=== PATIENT | female | born 2000 | race African-American/Black ===

== ENCOUNTER 2021-09-22 03:00 | Inpatient (IN) ==
[2021-09-22] MEDS ORDERED: PROVENTIL NEB TX 0.083% 2.5MG/ 3ML NEB ONE (03:10)
[2021-09-22] MEDS ORDERED: PROVENTIL NEB TX 0.083% 2.5MG/ 3ML ONE (03:12)
[2021-09-22 03:18] VITALS: BMI 23.0
[2021-09-22] MEDS ORDERED: SOLU-Medrol 125 MG VIAL IM ONE (03:30)
--- NOTE | 2021-09-22 03:30 | DR.SOBA ---
HPI Time Seen Time Seen by Provider: 09/22/21 03:15 Primary Care Physician Primary Care Physician: JOSE HAWKINS Complaints Chief Complaint Doctors Comments: ASTHHMA ATTACK . STARTING 6 HOURS AGO. DID NOT GET HER ASTHMA MEDS FROM THE PHARMACY. Chief Complaint:: PT STATES SHE IS HAVING AN ASTHMA ATTACK. STATES SHE WAS RECENTLY DIAGNOSED 3 WEEKS AGO AND HAS BEEN UNABLE TO GET HER INHALER. COVID-19 Coronavirus risk:travel/contact w/high risk person: No Has patient experienced Coronavirus symptoms: No Source History Provided: Patient Mode of Arrival Mode of Arrival: Ambulatory Timing Onset of Chief Complaint: 09/22/21 PMH PMH Past Medical History: Yes Past Medical History: Asthma Past Surgical History: No Surgical History: No History Family History History of Family Medical Conditions: Yes Family Medical History: Hypertension Social History Does patient currently use any type of tobacco product: No Have you used tobacco products in the last 12 months: No Alcohol Use: None Do you use any recreational Drugs:: No Lives With: Family Lives Where: Home Travel Risk Coronavirus risk:travel/contact w/high risk person: No Has patient experienced Coronavirus symptoms: No Infectious screening Have you traveled outside the country in the last 6 months?: No Isolation: Standard ROS Review of Systems Constitutional: No Symptoms Reported Eyes: No Symptoms Reported ENTM: No Symptoms Reported Respiratoy: Short of Breath and Wheezing Cardiovascular: No Symptoms Reported Gastrointestinal/Abdominal: No Symptoms Reported Genitourinary: No Symptoms Reported Neurological: No Symptoms Reported Musculoskeletal: No Symptoms Reported Integumentary: No Symptoms Reported Hematologic/Lymphatic: No Symptoms Reported Endocrine: No Symptoms Reported Psychiatric: No Symptoms Reported All Other Systems: Reviewed and Negative PE Vital Signs Vitals: Temperature 97.0 F Pulse Rate 101 Respiratory Rate 16 Blood Pressure [Left Arm] 107/59 Blood Pressure 116/56 O2 Sat by Pulse Oximetry 88 General Limitations: No Limitations General Appearance: Alert and In Distress (MODERATE DISTRESS) Head Head Exam: Normal Inspection Eyes Eye exam: Normal Appearance ENT ENT Exam: Normal Exam Neck Neck Exam: Normal Inspection Chest Chest Inspection: Normal Inspection Respiratory Respiratory Exam: Respiratory Distress (MODERATE DISTRESS) Respiratory Exam: Bilateral: Wheezing (MILD INSPIRATORY/EXPIRATORY WHEEZING) Cardiovascular Cardiovascular Exam: Normal Rhythm and Tachycardia Abdominal Exam Abdominal Exam: Normal Inspection, Normal Bowel Sounds and Soft Extremities Extremities Exam: Normal Inspection Back Back Exam: Normal Inspection Neurologic Neurological Exam: Alert and Oriented X3 Psychiatric Psychiatric Exam: Normal Affect and Normal Mood Skin Skin Exam: Warm, Dry, Intact and Normal Color MDM Differential Diagnosis Differential Diagnosis: Asthma Differential Diagnosis Comment:: ASTHMA EXACERBATION COURSE Treatment Treatment: PATIENT WAS INITIALLY GIVEN A ALBUTEROL NEB BUT O2 SAT REMAINED IN LOW 90'S. WAS GIVEN ANOTHER DUONEB AND SOLUMEDROL 125MG IM WITH O2 SAT INCREASING TO 95 % BUT DROPPING BACK TO LOW 90'S. PATIENT HAD CHEST XRAY THAT DID SHOW AN INFILTRATE AND HAD COVID -19 TEST THAT WAS NEGATIVE. WAS GIVEN KCL 40MEQ ORALLY FOR POTASSIUM OF 3.0 AND WAS GIVEN ANOTER DUONEB AT THE TIME OF WRITING THIS NOTE AND ALSO HAD AN ABG ORDERED. abg showed that o2 sat was 88% and 02 was in mid 50's. SPOKE [address] DR ROMERO AT 6:25 ABOUT THIS PATINT AND HE STATED HE WOULD ACCEPT THE PATIENT FOR ADMISSION BUT KEEP PATIENT ON ROCEPHINE 1 GRAM IV Q 24 AND ADD AZITHROMAX 500MG Q 24. CONTINUE TREATMENT FOR ASTHMA EXACERBATION AND PNEUMONIA. PATIENT WAS ADVISED OF THE INTENT TO ADMIT AND WAS AGREABLE TO THE ADMISSION. ROR Labs Reviewed Laboratory Results Reviewed?: Yes Result Diagrams: 09/22/21 04:02 09/22/21 04:02 Laboratory: WBC 11.8 X10^3/uL (3.6-10.0) H 09/22/21 04:02 RBC 4.26 X10^6/uL (3.5-5.4) 09/22/21 04:02 Hgb 13.0 g/dL (12.0-16.0) 09/22/21 04:02 Hct 38.0 % (36.0-47.0) 09/22/21 04:02 MCV 89.2 fL (80.0-100.0) 09/22/21 04:02 MCH 30.6 pg (27.0-34.0) 09/22/21 04:02 MCHC 34.3 g/dL (33.0-35.0) 09/22/21 04:02 RDW 13.7 % (11.6-16.5) 09/22/21 04:02 Plt Count 302 X10^3/uL (150.0-450.0) 09/22/21 04:02 MPV 7.2 fL (7.4-11.0) L 09/22/21 04:02 Neut % (Auto) 82.8 % (42.0-75.0) H 09/22/21 04:02 Lymph % (Auto) 10.9 % (21.0-51.0) L 09/22/21 04:02 [place] % (Auto) 3.0 % (0.0-13.0) 09/22/21 04:02 Eos % (Auto) 2.9 % (0.9-2.9) 09/22/21 04:02 Baso % (Auto) 0.4 % (0.2-1.0) 09/22/21 04:02 Neut # (Auto) 9.8 x10^3/uL (2.2-4.8) H 09/22/21 04:02 Lymph # (Auto) 1.3 X10^3/uL (1.3-2.9) 09/22/21 04:02 [place] # (Auto) 0.4 x10^3/uL (0.3-0.8) 09/22/21 04:02 Eos # (Auto) 0.3 x10^3/uL (0.0-0.2) H 09/22/21 04:02 Baso # (Auto) 0.0 X10^3/uL (0.0-0.1) 09/22/21 04:02 Absolute Nucleated RBC 0.1 /100WBC 09/22/21 04:02 D-Dimer 0.49 ug/ml (0.0-0.57) 09/22/21 06:12 Sample Site Lb 09/22/21 05:53 ABG pH 7.470 (7.35-7.45) H 09/22/21 05:53 ABG pCO2 30.0 mmHg (35.0-45.0) L 09/22/21 05:53 ABG pO2 51.0 mmHg (80.0-100.0) L 09/22/21 05:53 ABG HCO3 21.8 mmol/L (22-26) L 09/22/21 05:53 ABG O2 Saturation 88.0 % (90-100) L 09/22/21 05:53 ABG Base Excess -1.0 mmol/L (-2.0-2.0) 09/22/21 05:53 Gustavo Test N/a 09/22/21 05:53 A-a Gradient 61.0 mmHg 09/22/21 05:53 FiO2 21.0 09/22/21 05:53 Blood Gas Comments Patrice well ae 09/22/21 05:53 Sodium 141 mmol/L (136-145) 09/22/21 04:02 Corrected Sodium 142 mmol/L (136-145) 09/22/21 04:02 Potassium 3.0 mmol/L (3.5-5.1) L 09/22/21 04:02 Chloride 105 mmol/L (98-107) 09/22/21 04:02 Carbon Dioxide 24.0 mmol/L (21-32) 09/22/21 04:02 BUN 9 mg/dL (7-18) 09/22/21 04:02 Creatinine 0.85 mg/dL (0.55-1.02) 09/22/21 04:02 Est GFR (MDRD) Af Amer > 60 (>60) 09/22/21 04:02 Est GFR (MDRD) Non-Af > 60 (>60) 09/22/21 04:02 Glucose 121 mg/dL (65-99) H 09/22/21 04:02 Calcium 8.5 mg/dL (8.5-10.1) 09/22/21 04:02 Corrected Calcium TNP 09/22/21 04:02 Total Bilirubin 0.20 mg/dL (0.2-1.0) 09/22/21 04:02 AST 20 Units/L (15-37) 09/22/21 04:02 ALT 25 Units/L (12-78) 09/22/21 04:02 Alkaline Phosphatase 65 Units/L (46-116) 09/22/21 04:02 Total Protein 7.8 g/dL (6.4-8.2) 09/22/21 04:02 Albumin 3.8 g/dL (3.4-5.0) 09/22/21 04:02 Globulin 4.0 g/dL (2.5-4.5) 09/22/21 04:02 Albumin/Globulin Ratio 1.0 Ratio (1.1-2.1) L 09/22/21 04:02 HCG, Qual Negative <10 mIU/mL 09/22/21 04:02 SARS-CoV-2 (PCR) Negative (NEGATIVE) 09/22/21 03:52 XRAY XRAY Interpreted by: Radiologist (radiologist interpreted the chest xray later and did not denote a rll infiltrate.) X-ray Results: chest xray that showed perihilar congestion and rll infiltrate that was interpreted by Dr Covarrubias. Opioid Opioid Risk Tool Age (Yaya box if 16-45): Yes History of Preadolescent Sexual Abuse: No Total: 1 Total Score Risk Category: Low Risk Copyright: [facility] predicting aberrant behaviors Diagnosis Discharge Problem: Hypoxia Asthma exacerbation Qualifiers: Qualified Code(s): J45.901 - Unspecified asthma with (acute) exacerbation Pneumonia Qualifiers: Pneumonia type: due to unspecified organism Laterality: unspecified laterality Qualified Code(s): J18.9 - Pneumonia, unspecified organism Instructions Forms: Precautions for COVID19 [facility] Social Distancing
[2021-09-22] MEDS ORDERED: SOLU-Medrol 125 MG VIAL ONE (03:32)
[2021-09-22] MEDS ORDERED: DUONEB 0.5 MG/3 MG (3 mL) NEB ONE ×5 (03:34→15:57)
[2021-09-22 04:11] LABS: RED BLOOD COUNT 4.26 X10^6/uL (3.5-5.4); WHITE BLOOD COUNT 11.8 X10^3/uL (3.6-10.0)
[2021-09-22 04:16] LABS: BASOPHILS % (AUTO) 0.4 % (0.2-1.0); EOSINOPHILS # (AUTO) 0.3 x10^3/uL (0.0-0.2); EOSINOPHILS % (AUTO) 2.9 % (0.9-2.9); LYMPHOCYTES # (AUTO) 1.3 X10^3/uL (1.3-2.9); LYMPHOCYTES % (AUTO) 10.9 % (21.0-51.0); MEAN CORPUSCULAR HEMOGLOBIN 30.6 pg (27.0-34.0); MEAN CORPUSCULAR HGB CONC 34.3 g/dL (33.0-35.0); MEAN CORPUSCULAR VOLUME 89.2 fL (80.0-100.0); MEAN PLATELET VOLUME 7.2 fL (7.4-11.0); MONOCYTES # (AUTO) 0.4 x10^3/uL (0.3-0.8); NEUTROPHILS # (AUTO) 9.8 x10^3/uL (2.2-4.8); NEUTROPHILS % (AUTO) 82.8 % (42.0-75.0); RED CELL DISTRIBUTION WIDTH 13.7 % (11.6-16.5)
[2021-09-22 04:20] LABS: ALANINE AMINOTRANSFERASE 25 Units/L (12-78); ALBUMIN 3.8 g/dL (3.4-5.0); ALKALINE PHOSPHATASE 65 Units/L (46-116); ASPARTATE AMINO TRANSFERASE 20 Units/L (15-37); BLOOD UREA NITROGEN 9 mg/dL (7-18); CALCIUM 8.5 mg/dL (8.5-10.1); CHLORIDE 105 mmol/L (98-107); COR NA(FOR HYPERGLY) 142 mmol/L (136-145); CREATININE 0.85 mg/dL (0.55-1.02); SERUM PREGNANCY TEST, QUAL NEGATIVE <10 mIU/mL; SODIUM 141 mmol/L (136-145); TOTAL PROTEIN 7.8 g/dL (6.4-8.2); eGFR NON BLACK RACES > 60 (>60)
[2021-09-22] MEDS ORDERED: K-DUR TAB 20 MEQ PO ONE ×2 (05:56→06:26)
[2021-09-22 05:58] LABS: ABG HCO3 21.8 mmol/L (22-26)
[2021-09-22] MEDS ORDERED: ROCEPHIN 1 GRAM IV PREMIX 1 G/50 ML IV.SOLN. IV ONE (06:14)
--- NOTE | 2021-09-22 06:15 | RAD ---
HISTORYASTHMA EXACERBATION, SOBSTUDYCHEST, 1 [id number]/04/2022FINDINGSThe cardiomediastinal silhouette is stable. No acute airspace disease. No pneumothorax or effusion. The bony thorax appears intact.IMPRESSIONNo acute cardiopulmonary disease.Electronically signed by: ARTEM GIORDANO (Sep 22, 2021 06:13:44)
[2021-09-22] MEDS ORDERED: ROCEPHIN VIAL 1 GRAM ONE (06:26)
[2021-09-22] MEDS ORDERED: NS 1,000 ML IV 1,000 ML ONE (06:26)
[2021-09-22] MEDS ORDERED: ZITHROMAX INJ 500 MG VIAL 500 MG in D5W 250 ML IV 250 ML IV SCH ×2 (06:27→09:00)
[2021-09-22] MEDS ORDERED: NS 50 ML IV 50 ML IV ONE (06:27)
[2021-09-22] MEDS ORDERED: MICRO K EXTEN CAP 10 MEQ PO PRN (07:56)
[2021-09-22] MEDS ORDERED: K-RIDER 10 MEQ/NS 100 ML 10 MEQ/100 ML BAG IV PRN (07:56)
[2021-09-22] MEDS ORDERED: K-DUR TAB 20 MEQ PO PRN (07:56)
[2021-09-22] MEDS ORDERED: POTASSIUM CHL 40 MEQ/NS 0.45% 500 ML IV PRN (07:56)
[2021-09-22] MEDS ORDERED: POTASSIUM CHL 60 MEQ/NS 0.45% 500 ML IV PRN (07:56)
[2021-09-22] MEDS ORDERED: KLOR-CON PO PRN (07:56)
[2021-09-22] MEDS ORDERED: POTASSIUM CHLORIDE LIQ 20 MEQ UDC PO PRN (07:56)
[2021-09-22] MEDS: ROCEPHIN 1 GRAM IV PREMIX 1 G/50 ML IV.SOLN. IV SCH (08:26)
[2021-09-22] MEDS: PROVENTIL NEB TX 0.083% 2.5MG/ 3ML NEB SCH ×2 (08:30→12:00)
[2021-09-22] MEDS ORDERED: PROVENTIL NEB TX 0.083% 2.5MG/ 3ML NEB SCH (09:00)
[2021-09-22] MEDS ORDERED: SOLU-Medrol 40 MG VIAL IVP SCH (09:00)
[2021-09-22] MEDS: ZITHROMAX INJ 500 MG VIAL 500 MG in NS 250 ML IV 250 ML IV SCH ×2 (09:55→10:35)
[2021-09-22] MEDS: MICRO K EXTEN CAP 10 MEQ PO SCH (09:55)
--- NOTE | 2021-09-22 10:33 | DR.H&P ---
H&P History & Physical for Day of: H&P Date: 09/22/21 Chief Complaint Chief Complaint: Shortness of breath Wheezing Allergies Allergies Allergy/AdvReac Type Severity Reaction Status Date / Time No Known Drug Allergies Allergy Verified 08/01/19 08:13 History of Present Illness History of Present Illness: Pt is a 21 year old female past medical history of Asthma. She reports that for the past 2-3 days she has been having some cough and shortness of breath. Symptoms acute worsened overnight and she had difficulty breathing and wheezing. She denies fevers, chills. Labs/imaging: Wbc 11.8, Hgb 13, Plt 302, Na 141, K 3.0, Creatinine 0.85, Glucose 121, ABG: pH 7.4 7, pCO2 30, pO2 51, HCO3 21, O2sat 88% on room air. D-dimer 0.49, COVID-19 negative, CXR: no acute cardiopulmonary disease, Blood culture pending. Will admit patient for asthma exacerbation and after reviewing CXR and with leukocytosis will treat for community acquired pneumonia. Start on IV antibio tics: Rocephin and Azithromycin, IV Solumedrol 40mg Q6h, scheduled bronchodilators, Respiratory therapy. She is currently requiring supplemental oxygen of 2L nasal cannula. Will wean/titrate as tolerated. Hypokalemia on labs, will replete per protocol. Continue to closely monitor and follow up labs/ imaging. Past Medical History Past Medical History: Asthma Past Surgical History Surgical History: No History Family History Family Medical History: Hypertension Social History Does patient currently use any type of tobacco product: No Have you used tobacco products in the last 12 months: No Alcohol Use: None Medications Home Medications: No Known Drug Allergies Allergy (Verified 08/01/19 08:13) Labs Result Diagrams: 09/22/21 04:02 09/22/21 04:02 Labs: 09/22/21 08:38 Sputum - Expectorated Sputum - Final Laboratory WBC 11.8 X10^3/uL (3.6-10.0) H 09/22/21 04:02 RBC 4.26 X10^6/uL (3.5-5.4) 09/22/21 04:02 Hgb 13.0 g/dL (12.0-16.0) 09/22/21 04:02 Hct 38.0 % (36.0-47.0) 09/22/21 04:02 MCV 89.2 fL (80.0-100.0) 09/22/21 04:02 MCH 30.6 pg (27.0-34.0) 09/22/21 04:02 MCHC 34.3 g/dL (33.0-35.0) 09/22/21 04:02 RDW 13.7 % (11.6-16.5) 09/22/21 04:02 Plt Count 302 X10^3/uL (150.0-450.0) 09/22/21 04:02 MPV 7.2 fL (7.4-11.0) L 09/22/21 04:02 Neut % (Auto) 82.8 % (42.0-75.0) H 09/22/21 04:02 Lymph % (Auto) 10.9 % (21.0-51.0) L 09/22/21 04:02 [place] % (Auto) 3.0 % (0.0-13.0) 09/22/21 04:02 Eos % (Auto) 2.9 % (0.9-2.9) 09/22/21 04:02 Baso % (Auto) 0.4 % (0.2-1.0) 09/22/21 04:02 Neut # (Auto) 9.8 x10^3/uL (2.2-4.8) H 09/22/21 04:02 Lymph # (Auto) 1.3 X10^3/uL (1.3-2.9) 09/22/21 04:02 [place] # (Auto) 0.4 x10^3/uL (0.3-0.8) 09/22/21 04:02 Eos # (Auto) 0.3 x10^3/uL (0.0-0.2) H 09/22/21 04:02 Baso # (Auto) 0.0 X10^3/uL (0.0-0.1) 09/22/21 04:02 Absolute Nucleated RBC 0.1 /100WBC 09/22/21 04:02 D-Dimer 0.49 ug/ml (0.0-0.57) 09/22/21 06:12 Sample Site Lb 09/22/21 05:53 ABG pH 7.470 (7.35-7.45) H 09/22/21 05:53 ABG pCO2 30.0 mmHg (35.0-45.0) L 09/22/21 05:53 ABG pO2 51.0 mmHg (80.0-100.0) L 09/22/21 05:53 ABG HCO3 21.8 mmol/L (22-26) L 09/22/21 05:53 ABG O2 Saturation 88.0 % (90-100) L 09/22/21 05:53 ABG Base Excess -1.0 mmol/L (-2.0-2.0) 09/22/21 05:53 Gustavo Test N/a 09/22/21 05:53 A-a Gradient 61.0 mmHg 09/22/21 05:53 FiO2 21.0 09/22/21 05:53 Blood Gas Comments Patrice well ae 09/22/21 05:53 Sodium 141 mmol/L (136-145) 09/22/21 04:02 Corrected Sodium 142 mmol/L (136-145) 09/22/21 04:02 Potassium 3.0 mmol/L (3.5-5.1) L 09/22/21 04:02 Chloride 105 mmol/L (98-107) 09/22/21 04:02 Carbon Dioxide 24.0 mmol/L (21-32) 09/22/21 04:02 BUN 9 mg/dL (7-18) 09/22/21 04:02 Creatinine 0.85 mg/dL (0.55-1.02) 09/22/21 04:02 Est GFR (MDRD) Af Amer > 60 (>60) 09/22/21 04:02 Est GFR (MDRD) Non-Af > 60 (>60) 09/22/21 04:02 Glucose 121 mg/dL (65-99) H 09/22/21 04:02 Calcium 8.5 mg/dL (8.5-10.1) 09/22/21 04:02 Corrected Calcium TNP 09/22/21 04:02 Total Bilirubin 0.20 mg/dL (0.2-1.0) 09/22/21 04:02 AST 20 Units/L (15-37) 09/22/21 04:02 ALT 25 Units/L (12-78) 09/22/21 04:02 Alkaline Phosphatase 65 Units/L (46-116) 09/22/21 04:02 Total Protein 7.8 g/dL (6.4-8.2) 09/22/21 04:02 Albumin 3.8 g/dL (3.4-5.0) 09/22/21 04:02 Globulin 4.0 g/dL (2.5-4.5) 09/22/21 04:02 Albumin/Globulin Ratio 1.0 Ratio (1.1-2.1) L 09/22/21 04:02 HCG, Qual Negative <10 mIU/mL 09/22/21 04:02 SARS-CoV-2 (PCR) Negative (NEGATIVE) 09/22/21 03:52 Review of Systems Constitutional: No Symptoms Reported Eyes: No Symptoms Reported ENT: No Symptoms Reported Respiratory: Cough, Shortness of Breath and Wheezing Cardiovascular: No Symptoms Reported Gastrointestinal: No Symptoms Reported Genitourinary: No Symptoms Reported Musculoskeletal: No Symptoms Reported Skin: No Symptoms Reported Neurological: No Symptoms Reported Physical Exam Vital Signs: Temperature 97.0 F Pulse Rate 104 Respiratory Rate 20 Blood Pressure [Left Arm] 107/59 Blood Pressure 116/56 O2 Sat by Pulse Oximetry 92 Oriented: Normal Eyes: Normal Ear: Normal Nose: Normal Throat: Normal Respiratory: Wheezes Throughout Cardiovascular: Normal : Normal Auscultation: Bowel Sounds: Normal Palpation: Normal Tenderness: Normal Skin: Normal Musculoskeletal: Normal Psychiatric: Normal Mood Description: Calm and Appropriate Affect: Normal Speech Pattern: Clear and Appropriate Assessment/Plan (1) Asthma exacerbation: Qualifiers: Qualified Code(s): J45.901 - Unspecified asthma with (acute) exacerbation Status: Acute Plan: Supplemental O2, IV steroids, Bronchodilators (2) Pneumonia: Qualifiers: Laterality: unspecified laterality Pneumonia type: due to unspecified organism Qualified Code(s): J18.9 - Pneumonia, unspecified organism Status: Acute Plan: IV abx (3) Hypoxia: Status: Acute (4) Hypokalemia: Status: Acute Review H&P Reviewed: Yes Patient was examined?: Yes
[2021-09-22] MEDS ORDERED: XANAX PO ONE (11:00)
[2021-09-22] MEDS ORDERED: XANAX PO PRN (11:00)
[2021-09-22] MEDS ORDERED: XANAX ONE (11:06)
[2021-09-22] MEDS ORDERED: DUONEB 0.5 MG/3 MG (3 mL) NEB SCH (12:00)
[2021-09-22] MEDS: TYLENOL 325 MG TAB PO PRN ×2 (12:45→20:34)
[2021-09-22] MEDS ORDERED: VALIUM INJ IVP ONE (13:37)
[2021-09-22] MEDS: SOLU-Medrol 40 MG VIAL IVP SCH ×2 (14:48→21:36)
[2021-09-22] MEDS: DUONEB 0.5 MG/3 MG (3 mL) NEB SCH ×2 (16:10→20:36)
[2021-09-22] MEDS: XANAX PO PRN (20:00)
[2021-09-23] MEDS: DUONEB 0.5 MG/3 MG (3 mL) NEB SCH ×6 (00:05→21:19)
[2021-09-23] MEDS: TYLENOL 325 MG TAB PO PRN ×2 (04:27→15:18)
[2021-09-23 04:48] LABS: MEAN PLATELET VOLUME 7.7 fL (7.4-11.0)
[2021-09-23 04:52] LABS: BASOPHILS % (AUTO) 0.2 % (0.2-1.0); EOSINOPHILS % (AUTO) 0.1 % (0.9-2.9); HEMATOCRIT 37.3 % (36.0-47.0); HEMOGLOBIN 12.8 g/dL (12.0-16.0); LYMPHOCYTES # (AUTO) 0.7 X10^3/uL (1.3-2.9); LYMPHOCYTES % (AUTO) 2.8 % (21.0-51.0); MEAN CORPUSCULAR HEMOGLOBIN 30.4 pg (27.0-34.0); MEAN CORPUSCULAR HGB CONC 34.2 g/dL (33.0-35.0); MEAN CORPUSCULAR VOLUME 88.9 fL (80.0-100.0); MONOCYTES # (AUTO) 0.2 x10^3/uL (0.3-0.8); MONOCYTES % (AUTO) 0.7 % (0.0-13.0); NEUTROPHILS # (AUTO) 24.1 x10^3/uL (2.2-4.8); NEUTROPHILS % (AUTO) 96.2 % (42.0-75.0); RED CELL DISTRIBUTION WIDTH 13.7 % (11.6-16.5)
[2021-09-23 04:58] LABS: ALANINE AMINOTRANSFERASE 25 Units/L (12-78); ALBUMIN 3.4 g/dL (3.4-5.0); ALKALINE PHOSPHATASE 62 Units/L (46-116); ASPARTATE AMINO TRANSFERASE 24 Units/L (15-37); BLOOD UREA NITROGEN 12 mg/dL (7-18); CALCIUM 9.1 mg/dL (8.5-10.1); CARBON DIOXIDE 23.2 mmol/L (21-32); CHLORIDE 103 mmol/L (98-107); COR NA(FOR HYPERGLY) 137 mmol/L (136-145); CREATININE 0.69 mg/dL (0.55-1.02); SODIUM 136 mmol/L (136-145); TOTAL PROTEIN 7.7 g/dL (6.4-8.2); eGFR NON BLACK RACES > 60 (>60)
[2021-09-23 05:31] LABS: BAND NEUTROPHILS % 3 % (0-10)
[2021-09-23 05:32] LABS: PLATELET MORPHOLOGY COMMENT NORMAL (NORMAL)
[2021-09-23] MEDS: SOLU-Medrol 40 MG VIAL IVP SCH (06:10)
--- NOTE | 2021-09-23 06:50 | RAD ---
HISTORYSOBSTUDYCHEST, 1 [id number]/2022FINDINGSThe cardiomediastinal silhouette is stable. Increased interstitial markings and patchy bilateral airspace opacities. No pneumothorax or effusion. The bony thorax appears intact.IMPRESSIONBilateral airspace opacities concerning for pneumonia. Recommend follow-up to resolution.Electronically signed by: ARTEM GIORDANO (Sep 23, 2021 06:48:14)
[2021-09-23] MEDS: MICRO K EXTEN CAP 10 MEQ PO SCH (08:54)
[2021-09-23] MEDS: ZITHROMAX INJ 500 MG VIAL 500 MG in NS 250 ML IV 250 ML IV SCH (08:57)
[2021-09-23] MEDS: ROCEPHIN VIAL 1 GRAM 1 G in NS 100 ML IV 100 ML IV SCH ×2 (09:14→11:28)
[2021-09-23] MEDS ORDERED: NS 100 ML IV 100 ML ONE (09:37)
--- NOTE | 2021-09-23 11:03 | PCM.PROG ---
Progress Note Progress Note for Day of Date of Exam: 09/23/21 Subjective Subjective: Pt is a 21 year old female past medical history of Asthma admitted for asthma exacerbation and community acquired pneumonia. Yesterday, pt had acute anxiety and panic attack due to dyspnea and was given IV ativan 1mg x 1 dose and started on xanax prn that has been helping her symptoms. She had to be moved to the ICU and placed on rebreather for short period of time. This morning she reports feeling a little better and breathing much better controlled. She is currently requiring 2L supplemental oxygen. Labs/imaging: Wbc 25, Hgb 12.8, Plt 316, Na 136, K 4.3, Creatinine 0.69, Glucose 125, CXR: Bilateral airspace opacities concerning for pneumonia. Recommend follow-up to resolution. Sputum culture: gram positive cocci. Blood culture pending. Pt is currently receiving: IV antibiotics: Rocephin and Azithromycin, IV Solumedrol 80mg Q8h, scheduled bronchodilators, Respiratory therapy. Change Rocephin to Zosyn. Will hold IV steroids and consider restarting if indicated. Will wean/titrate supplemental oxygen as tolerated. Otherwise continue with current treatment plan. Continue to closely monitor and follow up labs/imaging. Time spent on clinical assessment, reviewing labs and imaging, decision making, and documentation greater than 45 minutes. Past Medical Family Social History Past Med/Fam/Surg Hx: No changes since H&P Allergies: Allergies No Known Drug Allergies Allergy (Verified 08/01/19 08:13) Review of Systems ROS: No change since H&P Vital Signs and I&O's Vital Signs: Temperature 98.2 F Pulse Rate [Left] 114 Pulse Rate 107 Respiratory Rate 23 Blood Pressure [Left Arm] 107/56 Blood Pressure 107/56 O2 Sat by Pulse Oximetry 93 Intake and Output: Intake & Output 09/20/21 09/21/21 09/22/21 09/23/21 23:59 23:59 23:59 23:59 Intake Total 600 / 600 270 / 270 Balance 600 / 600 270 / 270 Physical Exam Oriented: Normal Eyes: Normal Ear: Normal Nose: Normal Throat: Normal Respiratory: Wheezes and Rhonchi Cardiovascular: Normal Auscultation: Bowel Sounds: Normal Tenderness: Normal Skin: Normal Musculoskeletal: Normal Psychiatric: Normal Mood Description: Calm and Appropriate Affect: Normal Speech Pattern: Clear and Appropriate Laboratory and Diagnostics Result Diagrams: 09/23/21 04:31 09/23/21 04:31 Labs: 09/22/21 08:38 Sputum - Expectorated Sputum Sputum Culture - Preliminary 09/22/21 08:38 Sputum - Expectorated Sputum - Final Laboratory WBC 25.0 X10^3/uL (3.6-10.0) H D 09/23/21 04:31 RBC 4.20 X10^6/uL (3.5-5.4) 09/23/21 04:31 Hgb 12.8 g/dL (12.0-16.0) 09/23/21 04:31 Hct 37.3 % (36.0-47.0) 09/23/21 04:31 MCV 88.9 fL (80.0-100.0) 09/23/21 04:31 MCH 30.4 pg (27.0-34.0) 09/23/21 04:31 MCHC 34.2 g/dL (33.0-35.0) 09/23/21 04:31 RDW 13.7 % (11.6-16.5) 09/23/21 04:31 Plt Count 316 X10^3/uL (150.0-450.0) 09/23/21 04:31 Plt Count Comment Adequate (ADEQUATE) 09/23/21 04:31 MPV 7.7 fL (7.4-11.0) 09/23/21 04:31 Neut % (Auto) 96.2 % (42.0-75.0) H 09/23/21 04:31 Lymph % (Auto) 2.8 % (21.0-51.0) L 09/23/21 04:31 [place] % (Auto) 0.7 % (0.0-13.0) 09/23/21 04:31 Eos % (Auto) 0.1 % (0.9-2.9) L 09/23/21 04:31 Baso % (Auto) 0.2 % (0.2-1.0) 09/23/21 04:31 Neut # (Auto) 24.1 x10^3/uL (2.2-4.8) H 09/23/21 04:31 Lymph # (Auto) 0.7 X10^3/uL (1.3-2.9) L 09/23/21 04:31 [place] # (Auto) 0.2 x10^3/uL (0.3-0.8) L 09/23/21 04:31 Eos # (Auto) 0.0 x10^3/uL (0.0-0.2) 09/23/21 04:31 Baso # (Auto) 0.0 X10^3/uL (0.0-0.1) 09/23/21 04:31 Absolute Nucleated RBC 0.1 /100WBC 09/23/21 04:31 Total Counted 100 09/23/21 04:31 Neutrophils % (Manual) 93 % (39-76) H 09/23/21 04:31 Band Neutrophils % 3 % (0-10) 09/23/21 04:31 Lymphocytes % (Manual) 3 % (13-43) L 09/23/21 04:31 Monocytes % (Manual) 1 % (4-9) L 09/23/21 04:31 Plt Morphology Comment Normal (NORMAL) 09/23/21 04:31 RBC Morphology Normal (NORMAL) 09/23/21 04:31 D-Dimer 0.49 ug/ml (0.0-0.57) 09/22/21 06:12 Sample Site Lb 09/22/21 05:53 ABG pH 7.470 (7.35-7.45) H 09/22/21 05:53 ABG pCO2 30.0 mmHg (35.0-45.0) L 09/22/21 05:53 ABG pO2 51.0 mmHg (80.0-100.0) L 09/22/21 05:53 ABG HCO3 21.8 mmol/L (22-26) L 09/22/21 05:53 ABG O2 Saturation 88.0 % (90-100) L 09/22/21 05:53 ABG Base Excess -1.0 mmol/L (-2.0-2.0) 09/22/21 05:53 Gustavo Test N/a 09/22/21 05:53 A-a Gradient 61.0 mmHg 09/22/21 05:53 FiO2 21.0 09/22/21 05:53 Blood Gas Comments Patrice well ae 09/22/21 05:53 Sodium 136 mmol/L (136-145) 09/23/21 04:31 Corrected Sodium 137 mmol/L (136-145) 09/23/21 04:31 Potassium 4.3 mmol/L (3.5-5.1) 09/23/21 04:31 Chloride 103 mmol/L (98-107) 09/23/21 04:31 Carbon Dioxide 23.2 mmol/L (21-32) 09/23/21 04:31 BUN 12 mg/dL (7-18) 09/23/21 04:31 Creatinine 0.69 mg/dL (0.55-1.02) 09/23/21 04:31 Est GFR (MDRD) Af Amer > 60 (>60) 09/23/21 04:31 Est GFR (MDRD) Non-Af > 60 (>60) 09/23/21 04:31 Glucose 125 mg/dL (65-99) H 09/23/21 04:31 Calcium 9.1 mg/dL (8.5-10.1) 09/23/21 04:31 Corrected Calcium TNP 09/23/21 04:31 Total Bilirubin 0.40 mg/dL (0.2-1.0) 09/23/21 04:31 AST 24 Units/L (15-37) 09/23/21 04:31 ALT 25 Units/L (12-78) 09/23/21 04:31 Alkaline Phosphatase 62 Units/L (46-116) 09/23/21 04:31 Total Protein 7.7 g/dL (6.4-8.2) 09/23/21 04:31 Albumin 3.4 g/dL (3.4-5.0) 09/23/21 04:31 Globulin 4.3 g/dL (2.5-4.5) 09/23/21 04:31 Albumin/Globulin Ratio 0.8 Ratio (1.1-2.1) L 09/23/21 04:31 HCG, Qual Negative <10 mIU/mL 09/22/21 04:02 SARS-CoV-2 (PCR) Negative (NEGATIVE) 09/22/21 03:52 Plan (1) Asthma exacerbation: Status: Acute Qualifiers: Qualified Code(s): J45.901 - Unspecified asthma with (acute) exacerbation Plan: Supplemental O2, IV steroids, Bronchodilators (2) Pneumonia: Status: Acute Qualifiers: Laterality: unspecified laterality Pneumonia type: due to unspecified organism Qualified Code(s): J18.9 - Pneumonia, unspecified organism Plan: IV abx (3) Hypoxia: Status: Acute (4) Hypokalemia: Status: Acute
[2021-09-23] MEDS: ZOSYN VIAL 3.375 GRAMS 3.375 G in NS 100 ML IV 100 ML IV SCH ×3 (11:49→21:19)
[2021-09-23] MEDS: XANAX PO PRN (21:19)
[2021-09-24] MEDS: DUONEB 0.5 MG/3 MG (3 mL) NEB SCH ×6 (00:21→20:40)
[2021-09-24 04:23] LABS: BASOPHILS # (AUTO) 0.2 X10^3/uL (0.0-0.1); BASOPHILS % (AUTO) 0.9 % (0.2-1.0); EOSINOPHILS # (AUTO) 0.2 x10^3/uL (0.0-0.2); EOSINOPHILS % (AUTO) 0.9 % (0.9-2.9); HEMATOCRIT 36.8 % (36.0-47.0); HEMOGLOBIN 12.5 g/dL (12.0-16.0); LYMPHOCYTES # (AUTO) 1.6 X10^3/uL (1.3-2.9); LYMPHOCYTES % (AUTO) 8.3 % (21.0-51.0); MEAN CORPUSCULAR HEMOGLOBIN 30.4 pg (27.0-34.0); MEAN CORPUSCULAR HGB CONC 33.9 g/dL (33.0-35.0); MEAN CORPUSCULAR VOLUME 89.7 fL (80.0-100.0); MEAN PLATELET VOLUME 7.6 fL (7.4-11.0); MONOCYTES # (AUTO) 0.5 x10^3/uL (0.3-0.8); MONOCYTES % (AUTO) 2.4 % (0.0-13.0); NEUTROPHILS # (AUTO) 16.6 x10^3/uL (2.2-4.8); NEUTROPHILS % (AUTO) 87.5 % (42.0-75.0); RED CELL DISTRIBUTION WIDTH 14.1 % (11.6-16.5)
[2021-09-24 04:34] LABS: ALANINE AMINOTRANSFERASE 23 Units/L (12-78); ALBUMIN 3.1 g/dL (3.4-5.0); ALKALINE PHOSPHATASE 55 Units/L (46-116); ASPARTATE AMINO TRANSFERASE 19 Units/L (15-37); BLOOD UREA NITROGEN 15 mg/dL (7-18); CALCIUM 8.6 mg/dL (8.5-10.1); CARBON DIOXIDE 26.2 mmol/L (21-32); CHLORIDE 104 mmol/L (98-107); COR CA(FOR HYPOALB) 9.3 mg/dL (8.5-10.1); CREATININE 0.94 mg/dL (0.55-1.02); SODIUM 139 mmol/L (136-145); TOTAL PROTEIN 7.2 g/dL (6.4-8.2); eGFR NON BLACK RACES > 60 (>60)
[2021-09-24 04:50] LABS: PLATELET MORPHOLOGY COMMENT NORMAL (NORMAL)
[2021-09-24] MEDS: ZOSYN VIAL 3.375 GRAMS 3.375 G in NS 100 ML IV 100 ML IV SCH ×3 (06:02→21:47)
[2021-09-24] MEDS: ZITHROMAX INJ 500 MG VIAL 500 MG in NS 250 ML IV 250 ML IV SCH (08:29)
[2021-09-24] MEDS: MICRO K EXTEN CAP 10 MEQ PO SCH (08:30)
[2021-09-24] MEDS ORDERED: DIFLUCAN 100 MG IV (MIX by PHARMACY)* 100 MG/50 ML BAG IV SCH (10:00)
[2021-09-24] MEDS ORDERED: NS 100 ML IV 100 ML ONE (13:07)
[2021-09-24] MEDS: DIFLUCAN 200 MG IV PREMIX* 200 MG/100 ML BAG IV SCH (13:16)
--- NOTE | 2021-09-24 18:54 | RAD ---
EXAM: CHEST X-RAYHISTORY: Pneumonia follow-up.TECHNIQUE: AP CXR dated September 24, 2021 at 10:28 AM.COMPARISON: CXR dated September 23, 2021.FINDINGS:The heart size and mediastinum are within normal limits. There is lung parenchymal hyperinflation and hyperlucency in keeping with COPD/emphysema. There is no acute parenchymal infiltrate, pleural effusion, or pneumothorax seen. The visualized bony structures are within normal limits.IMPRESSION:1. No evidence for acute cardiopulmonary disease seen.2. Interval resolution of previously seen bilateral bronchopulmonary infiltrates.3. Stable COPD/emphysema.Electronically signed by: Ilene Jacobo (Sep 24, 2021 18:52:23)
[2021-09-24] MEDS: XANAX PO PRN (21:47)
[2021-09-25] MEDS: DUONEB 0.5 MG/3 MG (3 mL) NEB SCH ×3 (00:40→08:30)
[2021-09-25 04:38] LABS: BASOPHILS # (AUTO) 0.1 X10^3/uL (0.0-0.1); BASOPHILS % (AUTO) 0.9 % (0.2-1.0); EOSINOPHILS # (AUTO) 0.3 x10^3/uL (0.0-0.2); EOSINOPHILS % (AUTO) 2.9 % (0.9-2.9); HEMATOCRIT 37.3 % (36.0-47.0); HEMOGLOBIN 12.8 g/dL (12.0-16.0); LYMPHOCYTES # (AUTO) 2.8 X10^3/uL (1.3-2.9); LYMPHOCYTES % (AUTO) 29.7 % (21.0-51.0); MEAN CORPUSCULAR HEMOGLOBIN 30.9 pg (27.0-34.0); MEAN CORPUSCULAR HGB CONC 34.4 g/dL (33.0-35.0); MEAN CORPUSCULAR VOLUME 90.1 fL (80.0-100.0); MEAN PLATELET VOLUME 7.7 fL (7.4-11.0); MONOCYTES # (AUTO) 0.3 x10^3/uL (0.3-0.8); MONOCYTES % (AUTO) 3.7 % (0.0-13.0); NEUTROPHILS # (AUTO) 5.9 x10^3/uL (2.2-4.8); NEUTROPHILS % (AUTO) 62.8 % (42.0-75.0); RED BLOOD COUNT 4.14 X10^6/uL (3.5-5.4)
[2021-09-25 04:39] LABS: ALANINE AMINOTRANSFERASE 29 Units/L (12-78); ALKALINE PHOSPHATASE 53 Units/L (46-116); ASPARTATE AMINO TRANSFERASE 23 Units/L (15-37); BLOOD UREA NITROGEN 13 mg/dL (7-18); CALCIUM 8.5 mg/dL (8.5-10.1); CHLORIDE 102 mmol/L (98-107); COR CA(FOR HYPOALB) 9.3 mg/dL (8.5-10.1); CREATININE 0.87 mg/dL (0.55-1.02); SODIUM 136 mmol/L (136-145); TOTAL PROTEIN 6.8 g/dL (6.4-8.2); eGFR NON BLACK RACES > 60 (>60)
[2021-09-25 04:46] LABS: WHITE BLOOD COUNT 9.4 X10^3/uL (3.6-10.0)
[2021-09-25] MEDS: ZOSYN VIAL 3.375 GRAMS 3.375 G in NS 100 ML IV 100 ML IV SCH (05:54)
--- NOTE | 2021-09-25 07:14 | RAD ---
HISTORYPNEUMONIA FOLLOW UPSTUDYCHEST, 1 [id number]/13/2022.TECHNIQUEAP view of the chestFINDINGSCardiac and mediastinal contours are within normal limits. There is small residual opacity in the left mid to lower lung. The right lung appears clear. No pleural effusion or pneumothorax.IMPRESSIONMild infiltrate versus atelectasis or scar in the left mid to lower lung.Electronically signed by: Darnell Durand (Sep 25, 2021 07:12:05)
[2021-09-25] MEDS: MICRO K EXTEN CAP 10 MEQ PO SCH (09:38)
[2021-09-25] MEDS: DIFLUCAN 200 MG IV PREMIX* 200 MG/100 ML BAG IV SCH (09:38)
[2021-09-25 10:00] VITALS: BP 96/62
--- NOTE | 2021-09-25 10:21 | PCM.PROG ---
Progress Note Progress Note for Day of Date of Exam: 09/24/21 Subjective Subjective: Pt is a 21 year old female past medical history of Asthma admitted for asthma exacerbation and community acquired pneumonia. This morning she continues to improve. No acute events overnight. She is currently requiring 2L supplemental oxygen. Labs/imaging: Wbc 19, Hgb 12.5, Plt 327, Na 139, K 3.5, Creatinine 0.94, Glucose 92, CXR: 1.No evidence for acute cardiopulmonary disease seen. 2.Interval resolution of previously seen bilateral bronchopulmonary infiltrates. 3.Stable COPD/emphysema. Sputum culture: normal larry, Blood culture NGTD. Pt is currently receiving: IV antibiotics: Zosyn and Azithromycin, IV Solumedrol(hold), scheduled bronchodilators, Respiratory therapy. Will wean/titrate supplemental oxygen as tolerated. Otherwise continue with current treatment plan. Continue to closely monitor and follow up labs/imaging. Past Medical Family Social History Past Med/Fam/Surg Hx: No changes since H&P Allergies: Allergies No Known Drug Allergies Allergy (Verified 08/01/19 08:13) Review of Systems ROS: No change since H&P Vital Signs and I&O's Vital Signs: Temperature 98.1 F Pulse Rate [Left] 117 Pulse Rate 83 Respiratory Rate 23 Blood Pressure [Left Arm] 115/68 Blood Pressure 96/62 O2 Sat by Pulse Oximetry 93 Intake and Output: Intake & Output 09/22/21 09/23/21 09/24/21 09/25/21 23:59 23:59 23:59 23:59 Intake Total 600 / 600 2739 / 2739 1670 / 1670 343 / 343 Balance 600 / 600 2739 / 2739 1670 / 1670 343 / 343 Physical Exam Oriented: Normal Eyes: Normal Ear: Normal Nose: Normal Throat: Normal Respiratory: Wheezes and Rhonchi Cardiovascular: Normal : Normal Auscultation: Bowel Sounds: Normal Tenderness: Normal Skin: Normal Musculoskeletal: Normal Psychiatric: Normal Mood Description: Calm and Appropriate Affect: Normal Speech Pattern: Clear and Appropriate Laboratory and Diagnostics Result Diagrams: 09/25/21 03:15 09/25/21 03:15 Labs: 09/22/21 08:38 Sputum - Expectorated Sputum Sputum Culture - Preliminary 09/22/21 08:38 Sputum - Expectorated Sputum - Final 09/22/21 06:33 Blood Blood Culture - Preliminary 09/22/21 04:02 Blood Blood Culture - Preliminary Laboratory WBC 9.4 X10^3/uL (3.6-10.0) D 09/25/21 03:15 RBC 4.14 X10^6/uL (3.5-5.4) 09/25/21 03:15 Hgb 12.8 g/dL (12.0-16.0) 09/25/21 03:15 Hct 37.3 % (36.0-47.0) 09/25/21 03:15 MCV 90.1 fL (80.0-100.0) 09/25/21 03:15 MCH 30.9 pg (27.0-34.0) 09/25/21 03:15 MCHC 34.4 g/dL (33.0-35.0) 09/25/21 03:15 RDW 14.0 % (11.6-16.5) 09/25/21 03:15 Plt Count 301 X10^3/uL (150.0-450.0) 09/25/21 03:15 Plt Count Comment Adequate (ADEQUATE) 09/24/21 04:09 MPV 7.7 fL (7.4-11.0) 09/25/21 03:15 Neut % (Auto) 62.8 % (42.0-75.0) 09/25/21 03:15 Lymph % (Auto) 29.7 % (21.0-51.0) 09/25/21 03:15 [place] % (Auto) 3.7 % (0.0-13.0) 09/25/21 03:15 Eos % (Auto) 2.9 % (0.9-2.9) 09/25/21 03:15 Baso % (Auto) 0.9 % (0.2-1.0) 09/25/21 03:15 Neut # (Auto) 5.9 x10^3/uL (2.2-4.8) H 09/25/21 03:15 Lymph # (Auto) 2.8 X10^3/uL (1.3-2.9) 09/25/21 03:15 [place] # (Auto) 0.3 x10^3/uL (0.3-0.8) 09/25/21 03:15 Eos # (Auto) 0.3 x10^3/uL (0.0-0.2) H 09/25/21 03:15 Baso # (Auto) 0.1 X10^3/uL (0.0-0.1) 09/25/21 03:15 Absolute Nucleated RBC 0.1 /100WBC 09/25/21 03:15 Total Counted 100 09/24/21 04:09 Neutrophils % (Manual) 87 % (39-76) H 09/24/21 04:09 Band Neutrophils % 3 % (0-10) 09/23/21 04:31 Lymphocytes % (Manual) 11 % (13-43) L 09/24/21 04:09 Monocytes % (Manual) 2 % (4-9) L 09/24/21 04:09 Plt Morphology Comment Normal (NORMAL) 09/24/21 04:09 RBC Morphology Normal (NORMAL) 09/24/21 04:09 D-Dimer 0.49 ug/ml (0.0-0.57) 09/22/21 06:12 Sample Site Lb 09/22/21 05:53 ABG pH 7.470 (7.35-7.45) H 09/22/21 05:53 ABG pCO2 30.0 mmHg (35.0-45.0) L 09/22/21 05:53 ABG pO2 51.0 mmHg (80.0-100.0) L 09/22/21 05:53 ABG HCO3 21.8 mmol/L (22-26) L 09/22/21 05:53 ABG O2 Saturation 88.0 % (90-100) L 09/22/21 05:53 ABG Base Excess -1.0 mmol/L (-2.0-2.0) 09/22/21 05:53 Gustavo Test N/a 09/22/21 05:53 A-a Gradient 61.0 mmHg 09/22/21 05:53 FiO2 21.0 09/22/21 05:53 Blood Gas Comments Patrice well ae 09/22/21 05:53 Sodium 136 mmol/L (136-145) 09/25/21 03:15 Corrected Sodium TNP 09/25/21 03:15 Potassium 3.8 mmol/L (3.5-5.1) 09/25/21 03:15 Chloride 102 mmol/L (98-107) 09/25/21 03:15 Carbon Dioxide 27.0 mmol/L (21-32) 09/25/21 03:15 BUN 13 mg/dL (7-18) 09/25/21 03:15 Creatinine 0.87 mg/dL (0.55-1.02) 09/25/21 03:15 Est GFR (MDRD) Af Amer > 60 (>60) 09/25/21 03:15 Est GFR (MDRD) Non-Af > 60 (>60) 09/25/21 03:15 Glucose 93 mg/dL (65-99) 09/25/21 03:15 Calcium 8.5 mg/dL (8.5-10.1) 09/25/21 03:15 Corrected Calcium 9.3 mg/dL (8.5-10.1) 09/25/21 03:15 Total Bilirubin 0.20 mg/dL (0.2-1.0) 09/25/21 03:15 AST 23 Units/L (15-37) 09/25/21 03:15 ALT 29 Units/L (12-78) 09/25/21 03:15 Alkaline Phosphatase 53 Units/L (46-116) 09/25/21 03:15 Total Protein 6.8 g/dL (6.4-8.2) 09/25/21 03:15 Albumin 3.0 g/dL (3.4-5.0) L 09/25/21 03:15 Globulin 3.8 g/dL (2.5-4.5) 09/25/21 03:15 Albumin/Globulin Ratio 0.8 Ratio (1.1-2.1) L 09/25/21 03:15 HCG, Qual Negative <10 mIU/mL 09/22/21 04:02 SARS-CoV-2 (PCR) Negative (NEGATIVE) 09/22/21 03:52 Plan (1) Asthma exacerbation: Status: Acute Qualifiers: Qualified Code(s): J45.901 - Unspecified asthma with (acute) exacerbation Plan: Supplemental O2, IV steroids, Bronchodilators (2) Pneumonia: Status: Acute Qualifiers: Laterality: unspecified laterality Pneumonia type: due to unspecified organism Qualified Code(s): J18.9 - Pneumonia, unspecified organism Plan: IV abx (3) Hypoxia: Status: Acute (4) Hypokalemia: Status: Acute
--- NOTE | 2021-09-25 10:28 | W.DIS.FURT ---
Summary of Discharge Discharge Summary of Date Date of Exam: 09/25/21 Admission Date Date of Admission: 09/22/21 Admission Diagnosis Patient Problems (Updated 09/25/21 @ 08:24 by Mane Shane) Asthma exacerbation (Acute) J45.901 Hypoxia (Acute) R09.02 Pneumonia (Acute) J18.9 Hospital Course: Pt is a 21 year old female past medical history of Asthma admitted for asthma exacerbation and community acquired pneumonia. Her hospital/treatment course included: IV antibiotics: Zosyn and Azithromycin, IV Solumedrol, scheduled bronchodilators, Respiratory therapy. Her initial chest xr did show some infi ltrate and then repeat the next day revealed interval resolution of previously seen bilateral bronchopulmonary infiltrates. Pt responded well to treatments. She had required 2L supplemental oxygen and was able to be weaned down to room air. She was discharged in stable condition. Rx levaquin, prednisone, xanax(prn for anxiety), duonebs. Instructed to follow up with pcp in 3-5 days. Vital Signs: Vital Signs (72 hours) 09/22/21 12:00 09/22/21 12:45 09/22/21 13:45 Temperature 97.6 F Pulse Rate 122 H Pulse Rate [Left] 116 H Respiratory Rate 28 H 28 H 28 H Blood Pressure Blood Pressure [Left Arm] 102/58 O2 Sat by Pulse Oximetry 88 L 09/22/21 16:00 09/22/21 16:10 09/22/21 20:00 Temperature 98.1 F 98.3 F Pulse Rate 108 H Pulse Rate [Left] 110 H 122 H Respiratory Rate 24 28 H Blood Pressure Blood Pressure [Left Arm] 119/62 O2 Sat by Pulse Oximetry 100 100 94 L 09/22/21 20:34 09/22/21 20:36 09/22/21 21:34 Temperature Pulse Rate 117 H Pulse Rate [Left] Respiratory Rate 36 H 28 H Blood Pressure Blood Pressure [Left Arm] O2 Sat by Pulse Oximetry 98 09/22/21 23:33 09/23/21 00:05 09/23/21 04:00 Temperature 98.7 F 98.6 F Pulse Rate 111 H Pulse Rate [Left] 104 H 106 H Respiratory Rate 24 28 H Blood Pressure Blood Pressure [Left Arm] 113/58 124/70 O2 Sat by Pulse Oximetry 95 97 96 09/23/21 04:27 09/23/21 05:27 09/23/21 06:00 Temperature Pulse Rate Pulse Rate [Left] Respiratory Rate 28 H 24 Blood Pressure Blood Pressure [Left Arm] O2 Sat by Pulse Oximetry 99 09/23/21 08:00 09/23/21 08:12 09/23/21 09:30 Temperature 98.2 F Pulse Rate 107 H 115 H Pulse Rate [Left] 114 H Respiratory Rate 26 H 23 Blood Pressure 107/56 Blood Pressure [Left Arm] 107/56 O2 Sat by Pulse Oximetry 96 93 L 96 09/23/21 12:00 09/23/21 13:45 09/23/21 15:18 Temperature 98.0 F Pulse Rate 118 H Pulse Rate [Left] 127 H Respiratory Rate 21 26 H Blood Pressure Blood Pressure [Left Arm] 115/59 O2 Sat by Pulse Oximetry 95 95 09/23/21 16:00 09/23/21 16:18 09/23/21 16:35 Temperature 98.3 F Pulse Rate 114 H Pulse Rate [Left] 117 H Respiratory Rate 24 24 Blood Pressure Blood Pressure [Left Arm] 115/68 O2 Sat by Pulse Oximetry 95 98 09/23/21 20:00 09/23/21 21:19 09/23/21 23:55 Temperature 97.5 F L 98.2 F Pulse Rate 116 H 113 H 113 H Pulse Rate [Left] Respiratory Rate 23 26 H Blood Pressure 115/63 118/60 Blood Pressure [Left Arm] O2 Sat by Pulse Oximetry 93 L 95 96 09/24/21 03:53 09/24/21 04:04 09/24/21 08:00 Temperature 97.7 F 97.6 F Pulse Rate 107 H 95 H Pulse Rate [Left] Respiratory Rate 22 22 Blood Pressure 94/52 112/59 101/57 Blood Pressure [Left Arm] O2 Sat by Pulse Oximetry 98 98 09/24/21 09:35 09/24/21 12:00 09/24/21 13:45 Temperature 97.6 F Pulse Rate 101 H 95 H 95 H Pulse Rate [Left] Respiratory Rate 19 Blood Pressure 102/63 Blood Pressure [Left Arm] O2 Sat by Pulse Oximetry 96 98 95 09/24/21 16:00 09/24/21 20:00 09/24/21 20:40 Temperature 97.8 F 97.9 F Pulse Rate 100 H 100 H 98 H Pulse Rate [Left] Respiratory Rate 22 18 Blood Pressure 108/65 125/67 Blood Pressure [Left Arm] O2 Sat by Pulse Oximetry 98 100 97 09/25/21 00:00 09/25/21 04:00 09/25/21 08:00 Temperature 97.9 F 98.1 F 98.1 F Pulse Rate 99 H 81 83 Pulse Rate [Left] Respiratory Rate 27 H 20 23 Blood Pressure 104/53 89/53 96/62 Blood Pressure [Left Arm] O2 Sat by Pulse Oximetry 98 99 98 09/25/21 08:31 09/25/21 10:00 Temperature Pulse Rate Pulse Rate [Left] Respiratory Rate Blood Pressure Blood Pressure [Left Arm] O2 Sat by Pulse Oximetry 97 93 L Labs: Laboratory Last Values WBC 9.4 X10^3/uL (3.6-10.0) D 09/25/21 03:15 RBC 4.14 X10^6/uL (3.5-5.4) 09/25/21 03:15 Hgb 12.8 g/dL (12.0-16.0) 09/25/21 03:15 Hct 37.3 % (36.0-47.0) 09/25/21 03:15 MCV 90.1 fL (80.0-100.0) 09/25/21 03:15 MCH 30.9 pg (27.0-34.0) 09/25/21 03:15 MCHC 34.4 g/dL (33.0-35.0) 09/25/21 03:15 RDW 14.0 % (11.6-16.5) 09/25/21 03:15 Plt Count 301 X10^3/uL (150.0-450.0) 09/25/21 03:15 Plt Count Comment Adequate (ADEQUATE) 09/24/21 04:09 MPV 7.7 fL (7.4-11.0) 09/25/21 03:15 Neut % (Auto) 62.8 % (42.0-75.0) 09/25/21 03:15 Lymph % (Auto) 29.7 % (21.0-51.0) 09/25/21 03:15 [place] % (Auto) 3.7 % (0.0-13.0) 09/25/21 03:15 Eos % (Auto) 2.9 % (0.9-2.9) 09/25/21 03:15 Baso % (Auto) 0.9 % (0.2-1.0) 09/25/21 03:15 Neut # (Auto) 5.9 x10^3/uL (2.2-4.8) H 09/25/21 03:15 Lymph # (Auto) 2.8 X10^3/uL (1.3-2.9) 09/25/21 03:15 [place] # (Auto) 0.3 x10^3/uL (0.3-0.8) 09/25/21 03:15 Eos # (Auto) 0.3 x10^3/uL (0.0-0.2) H 09/25/21 03:15 Baso # (Auto) 0.1 X10^3/uL (0.0-0.1) 09/25/21 03:15 Absolute Nucleated RBC 0.1 /100WBC 09/25/21 03:15 Total Counted 100 09/24/21 04:09 Neutrophils % (Manual) 87 % (39-76) H 09/24/21 04:09 Band Neutrophils % 3 % (0-10) 09/23/21 04:31 Lymphocytes % (Manual) 11 % (13-43) L 09/24/21 04:09 Monocytes % (Manual) 2 % (4-9) L 09/24/21 04:09 Plt Morphology Comment Normal (NORMAL) 09/24/21 04:09 RBC Morphology Normal (NORMAL) 09/24/21 04:09 D-Dimer 0.49 ug/ml (0.0-0.57) 09/22/21 06:12 Sample Site Lb 09/22/21 05:53 ABG pH 7.470 (7.35-7.45) H 09/22/21 05:53 ABG pCO2 30.0 mmHg (35.0-45.0) L 09/22/21 05:53 ABG pO2 51.0 mmHg (80.0-100.0) L 09/22/21 05:53 ABG HCO3 21.8 mmol/L (22-26) L 09/22/21 05:53 ABG O2 Saturation 88.0 % (90-100) L 09/22/21 05:53 ABG Base Excess -1.0 mmol/L (-2.0-2.0) 09/22/21 05:53 Gustavo Test N/a 09/22/21 05:53 A-a Gradient 61.0 mmHg 09/22/21 05:53 FiO2 21.0 09/22/21 05:53 Blood Gas Comments Patrice well ae 09/22/21 05:53 Sodium 136 mmol/L (136-145) 09/25/21 03:15 Corrected Sodium TNP 09/25/21 03:15 Potassium 3.8 mmol/L (3.5-5.1) 09/25/21 03:15 Chloride 102 mmol/L (98-107) 09/25/21 03:15 Carbon Dioxide 27.0 mmol/L (21-32) 09/25/21 03:15 BUN 13 mg/dL (7-18) 09/25/21 03:15 Creatinine 0.87 mg/dL (0.55-1.02) 09/25/21 03:15 Est GFR (MDRD) Af Amer > 60 (>60) 09/25/21 03:15 Est GFR (MDRD) Non-Af > 60 (>60) 09/25/21 03:15 Glucose 93 mg/dL (65-99) 09/25/21 03:15 Calcium 8.5 mg/dL (8.5-10.1) 09/25/21 03:15 Corrected Calcium 9.3 mg/dL (8.5-10.1) 09/25/21 03:15 Total Bilirubin 0.20 mg/dL (0.2-1.0) 09/25/21 03:15 AST 23 Units/L (15-37) 09/25/21 03:15 ALT 29 Units/L (12-78) 09/25/21 03:15 Alkaline Phosphatase 53 Units/L (46-116) 09/25/21 03:15 Total Protein 6.8 g/dL (6.4-8.2) 09/25/21 03:15 Albumin 3.0 g/dL (3.4-5.0) L 09/25/21 03:15 Globulin 3.8 g/dL (2.5-4.5) 09/25/21 03:15 Albumin/Globulin Ratio 0.8 Ratio (1.1-2.1) L 09/25/21 03:15 HCG, Qual Negative <10 mIU/mL 09/22/21 04:02 SARS-CoV-2 (PCR) Negative (NEGATIVE) 09/22/21 03:52 Reason For Visit: ASTHMA EXACERBATION WITH PNEUMONIA Discharge Date Discharge Date: 09/25/21 Discharge Diagnosis All Active Problems (Updated 09/25/21 @ 08:24 by Mane Shane) Anxiety (Acute) Hypokalemia (Acute) Eye infection (Acute) Conjunctivitis of right eye (Acute) Lower back pain (Acute) Muscle spasm (Acute) Diarrhea (Acute) Strep throat (Acute) COVID-19 (Acute) Pneumonia of right upper lobe due to infectious organism (Acute) Hypoxia (Acute) Wheezing (Acute) History of COVID-19 (Acute) Asthma exacerbation (Acute) Hypoxia (Acute) Pneumonia (Acute) Plan of Treatment: Continue with present treatment and follow up plan. Pt is to keep follow up appointment as instructed and take medications as ordered. Discharge Medications Discharge Medications: No Known Drug Allergies Allergy (Verified 08/01/19 08:13) New Prescriptions alprazolam [Xanax] 0.5 mg PO BID PRN 7 Days #14 tab MDD 2 tabs 09/25/21 [Rx] ipratropium-albuterol 3 ml INHALATION Q4-6H PRN #90 ml 09/25/21 [Rx] levofloxacin 750 mg PO Q24H 5 Days #5 tab 09/25/21 [Rx] prednisone 40 mg PO DAILY 5 Days #10 tab 09/25/21 [Rx] Follow up and Referral Follow Up: 1 Week Discharge Disposition Discharge Disposition: Home Discharge Condition: Stable Discharge Plan Discharge Plan Hospital Course: Pt is a 21 year old female past medical history of Asthma admitted for asthma exacerbation and community acquired pneumonia. Her hospital/treatment course included: IV antibiotics: Zosyn and Azithromycin, IV Solumedrol, scheduled bronchodilators, Respiratory therapy. Her initial chest xr did show some infiltrate and then repeat the next day revealed interval resolution of previously seen bilateral bronchopulmonary infiltrates. Pt responded well to treatments. She had required 2L supplemental oxygen and was able to be weaned down to room air. She was discharged in stable condition. Rx levaquin, prednisone, xanax(prn for anxiety), duonebs. Instructed to follow up with pcp in 3-5 days. Patient Disposition: 01 HOME, SELF-CARE Condition: Stable Health Concerns: Post Hospitalization: new medications and changes needed to prevent readmission or further decline. Pt educated and given instructions on all concerns. Care Plan Goals: Problem: Respiratory Complications Goal: Improved Uncomplicated Respiratory Status Instructions: Follow provided instructions. Follow up with primary physician as directed. Contact primary care physician or report to the closest Emergency Room if condition worsens. Plan of Treatment: Continue with present treatment and follow up plan. Pt is to keep follow up appointment as instructed and take medications as ordered. Prescriptions: New prednisone 20 mg tablet 40 mg PO DAILY 5 Days Qty: 10 RF: 0 ipratropium-albuterol 0.5 mg-3 mg(2.5 mg base)/3 mL solution for nebulization 3 ml inhalation Q4-6H PRNQty: 90 RF: 0 levofloxacin 750 mg tablet 750 mg PO Q24H 5 Days Qty: 5 RF: 0 alprazolam [Xanax] 0.5 mg tablet 0.5 mg PO BID MDD 2 tabs PRN (Reason: anxiety) 7 Days Qty: 14 RF: 0 albuterol sulfate [Ventolin HFA] 90 mcg/actuation Hfa Aerosol Inhaler 1 inh INHALATION Q4HR PRNQty: 1 RF: 0 Follow ups/Referrals Follow ups/Referrals: MIQUEL VILLANUEVA [Primary Care Provider] - 10/02/21 10:00 am Instructions Instructions: Panic Attack, [id number], Asthma, Adult, [id number], Managing Anxiety, Adult, Asthma Attack Prevention, Adult, Asthma and Physical Activity, Community-Acquired Pneumonia, Adult, Bhsy-xi-Eqmb Activity Restrictions/Additional Instructions: RX for nebulizer Stand Alone Forms: Excuse From Work or School, Precautions for COVID19, [facility], Patient Portal, Social Distancing Patient Education Addl Reference Links: Asthma, Adult [email or web address] [email or web address]= [email or web address]&maxresults=10&language=en&patientPerson.administrativeGenderCode.c=F&patientPe rson.administrativeGenderCode.dn=Female&age.v.v=21&age.v.u=a&performer=PROV&info rmationRecipient=PAT&performer.languageC ode.c=en&mainSearchCriteria.v.z=[id number]&mainSearchCriteria.v.cs=[id number] 883.6.96&mainSearchCriteria.v.dn=Asthma%2Bexacerbation&mainSearchCriteria.v.c1=2 26&mainSearchCriteria.v.dn1=Asthma%2Bexa cerbation&mainSearchCriteria.v.m0=915.92&mainSearchCriteria.v.cs2=[id number] 883.6.103&mainSearchCriteria.v.dn2=Asthma%2Bexacerbation&mainSearchCriteria.v.c3 =J45.901&mainSearchCriteria.v.cs3=2.16.8 [id number]&mainSearchCriteria.v.dn3=Asthma%2Bexacerbation&f=[id number]- [id number]
[2021-09-25] MEDS: ZITHROMAX INJ 500 MG VIAL 500 MG in NS 250 ML IV 250 ML IV SCH (10:43)
== END 2021-09-25 12:10 | disposition home or self-care (01) | DRG 202 ==
LOC: MED/SURG 03:02 → ER 03:02 → OBSVTOIN 06:41 → MED/SURG 07:03 → ICU 13:43
PROVIDERS: ADMIT Family Medicine; ATTEND Family Medicine
DX: R06.02 Shortness of breath; E87.6 Hypokalemia; J44.9 Chronic obstructive pulmonary disease, unspecified; Z20.822 Contact with and (suspected) exposure to COVID-19; R09.02 Hypoxemia; J45.901 Unspecified asthma with (acute) exacerbation; J18.8 Other pneumonia, unspecified organism

== ENCOUNTER 2022-02-20 01:14 | Inpatient (IN) ==
[2022-02-20] MEDS ORDERED: DUONEB 0.5 MG/3 MG (3 mL) NEB ONE ×7 (01:28→04:00)
[2022-02-20] MEDS ORDERED: SOLU-Medrol 125 MG VIAL IVP ONE (01:29)
--- NOTE | 2022-02-20 01:29 | DR.SOBA ---
HPI Time Seen Time Seen by Provider: 02/20/22 01:29 Primary Care Physician Primary Care Physician: CAROLINA VILLANUEVA HPI Comment HPI Comment: Cough, sob and wheezing x one week which is worsening making her feel like she's got "fluid in" her lungs; she last used neb before work yesterday; inhaler isn't working; she hasn't been evaluated; no fever, chills Complaints Chief Complaint:: PT AMBULATORY IN ED WITH C/O HURTING IN CHEST AND LUNGS X 1 WEEK. PT STATES SHE CAN HARDLY BREATHE AND HAS FLUID ON HER LUNGS. COVID-19 Coronavirus risk:travel/contact w/high risk person: No Has patient experienced Coronavirus symptoms: Yes Coronavirus symptoms experienced: Coughing and Shortness of Breath Source History Provided: Patient Mode of Arrival Mode of Arrival: Ambulatory Timing Onset of Chief Complaint: 02/13/22 PMH PMH Past Medical History: Yes Past Medical History: Asthma Past Surgical History: No Surgical History: No History Family History History of Family Medical Conditions: Yes Family Medical History: Cancer and Hypertension Social History Does patient currently use any type of tobacco product: No Have you used tobacco products in the last 12 months: No Type of Tobacco Use: None Does any household member use tobacco: No Alcohol Use: None Do you use any recreational Drugs:: No Lives With: Mom Lives Where: Home Travel Risk Coronavirus risk:travel/contact w/high risk person: No Has patient experienced Coronavirus symptoms: Yes Coronavirus symptoms experienced: Coughing and Shortness of Breath Infectious screening In the last 2 months have you had wt loss of >10#?: NO Have you had fever, night sweats or hemotysis?: No Have you traveled outside the country in the last 6 months?: No Isolation: Standard ROS Review of Systems Constitutional: No Symptoms Reported Eyes: No Symptoms Reported ENTM: No Symptoms Reported Cardiovascular: No Symptoms Reported Gastrointestinal/Abdominal: No Symptoms Reported Genitourinary: No Symptoms Reported Neurological: No Symptoms Reported Musculoskeletal: No Symptoms Reported Integumentary: No Symptoms Reported Hematologic/Lymphatic: No Symptoms Reported Endocrine: No Symptoms Reported Psychiatric: No Symptoms Reported PE Vital Signs Vitals: Temperature 98.4 F Pulse Rate 101 Respiratory Rate 24 Blood Pressure [Left Arm] 111/63 Blood Pressure 111/65 O2 Sat by Pulse Oximetry 89 General Limitations: No Limitations General Appearance: Alert and In No Apparent Distress Head Head Exam: Normal Inspection Eyes Eye exam: Normal Appearance ENT ENT Exam: Normal Exam Neck Neck Exam: Normal Inspection Chest Chest Inspection: Normal Inspection Respiratory Respiratory Exam: Bilateral: Wheezing Cardiovascular Cardiovascular Exam: Regular Rate and Normal Rhythm Abdominal Exam Abdominal Exam: Normal Inspection, Normal Bowel Sounds and Soft Extremities Extremities Exam: Normal Inspection Back Back Exam: Normal Inspection Neurologic Neurological Exam: Alert and Oriented X3 Psychiatric Psychiatric Exam: Normal Affect and Normal Mood Skin Skin Exam: Warm, Dry, Intact and Normal Color COURSE Reevaluation 1st: Unchanged 2nd: Improved (sitting up talking to friend) 3rd: Worsened (still wheezing, now coughing/spitting up phlegm) Consultation Call Returned: 04:50 (Dr Mojica accepts admission) ROR Labs Reviewed Laboratory Results Reviewed?: Yes Laboratory: SARS CoV-2 RNA Rapid MAYI Negative (NEGATIVE) 02/20/22 01:35 XRAY XRAY Interpreted by: Radiologist X-ray Results: pcxr: Normal chest. Opioid Opioid Risk Tool Age (Yaya box if 16-45): Yes History of Preadolescent Sexual Abuse: No Total: 1 Total Score Risk Category: Low Risk Copyright: Nicholas RIVAS predicting aberrant behaviors Discharge Plan Diagnosis Discharge Problem: Asthma exacerbation, Hypoxia Discharge Plan Patient Disposition: ADMITTED INPATIENT Condition: Stable Prescriptions: No Action ipratropium-albuterol 0.5 mg-3 mg(2.5 mg base)/3 mL solution for nebulization 3 ml inhalation Q4-6H PRNQty: 90 0RF albuterol sulfate [Ventolin HFA] 90 mcg/actuation Hfa Aerosol Inhaler 1 inh INHALATION Q4HR PRNQty: 1 0RF Rx Instructions: 6.7mcg 1puff every 4 hours as needed for shortness of breath Health Concerns: Post Hospitalization: new medications and changes needed to prevent readmission or further decline. Pt educated and given instructions on all concerns. Plan of Treatment: Continue with present treatment and follow up plan. Pt is to keep follow up appointment as instructed and take medications as ordered. Follow ups/Referrals Follow ups/Referrals: MIQUEL VILLANUEVA [Primary Care Provider] - 3 days Instructions Stand Alone Forms: Delphine Feliciano, Patient Portal, Social Distancing
[2022-02-20] MEDS ORDERED: SOLU-Medrol 125 MG VIAL ONE (01:38)
--- NOTE | 2022-02-20 02:00 | RAD ---
HISTORYPT AMBULATORY IN ED WITH C/O HURTING IN CHEST AND LUNGS X 1 WEEK. PT STATES SHE CAN HARDLY BREATHE AND HAS FLUID ON HER LUNGS. ASTHMA NO SX HXSTUDYCHEST, 1 [id number]/17/2022FINDINGSThe trachea is midline. The cardiac silhouette is unremarkable. The lungs are clear without focal infiltrate or effusion. The bony thorax is unremarkable.IMPRESSIONNormal chest.Electronically signed by: Segundo Tavares (Feb 20, 2022 01:58:37)
[2022-02-20] MEDS ORDERED: S2 RACEMIC EPINEPHRINE NEB ONE (03:04)
[2022-02-20] MEDS ORDERED: S2 RACEMIC EPINEPHRINE ONE (03:15)
[2022-02-20] MEDS ORDERED: SALINE 0.9% 3 ML NEB TX ONE (03:16)
[2022-02-20] MEDS ORDERED: SALINE 0.9% 3 ML NEB TX NEB ONE (03:17)
[2022-02-20] MEDS ORDERED: S2 RACEMIC EPINEPHRINE NEB PRN (04:38)
[2022-02-20] MEDS: PROVENTIL NEB TX 0.083% 2.5MG/ 3ML NEB SCH ×5 (04:45→20:50)
[2022-02-20] MEDS ORDERED: ZOFRAN INJ 4 MG VIAL IVP PRN (04:49)
[2022-02-20] MEDS ORDERED: NS 250 ML IV 250 ML IV ONE (04:58)
[2022-02-20] MEDS ORDERED: ZITHROMAX INJ 500 MG VIAL IV ONE (04:58)
[2022-02-20] MEDS: ZITHROMAX INJ 500 MG VIAL 500 MG in NS 250 ML IV 250 ML IV SCH ×2 (04:59→08:45)
[2022-02-20 05:08] LABS: BASOPHILS # (AUTO) 0.1 X10^3/uL (0.0-0.1); EOSINOPHILS % (AUTO) 0.3 % (0.9-2.9); HEMATOCRIT 38.5 % (36.0-47.0); HEMOGLOBIN 13.4 g/dL (12.0-16.0); LYMPHOCYTES # (AUTO) 0.8 X10^3/uL (1.3-2.9); LYMPHOCYTES % (AUTO) 10.6 % (21.0-51.0); MEAN CORPUSCULAR HGB CONC 34.7 g/dL (33.0-35.0); MEAN CORPUSCULAR VOLUME 89.3 fL (80.0-100.0); MEAN PLATELET VOLUME 7.3 fL (7.4-11.0); MONOCYTES # (AUTO) 0.1 x10^3/uL (0.3-0.8); MONOCYTES % (AUTO) 1.9 % (0.0-13.0); NEUTROPHILS # (AUTO) 6.7 x10^3/uL (2.2-4.8); NEUTROPHILS % (AUTO) 86.2 % (42.0-75.0); RED BLOOD COUNT 4.32 X10^6/uL (3.5-5.4); RED CELL DISTRIBUTION WIDTH 13.1 % (11.6-16.5); WHITE BLOOD COUNT 7.8 X10^3/uL (3.6-10.0)
[2022-02-20 05:17] LABS: ABG BASE EXCESS -1.1 mmol/L (-2.0-2.0)
[2022-02-20 05:19] LABS: ABG ALLEN TEST POS
[2022-02-20 05:19] LABS: ALANINE AMINOTRANSFERASE 28 Units/L (12-78); ALBUMIN 3.8 g/dL (3.4-5.0); ALKALINE PHOSPHATASE 61 Units/L (46-116); ASPARTATE AMINO TRANSFERASE 25 Units/L (15-37); BLOOD UREA NITROGEN 12 mg/dL (7-18); CALCIUM 8.9 mg/dL (8.5-10.1); CARBON DIOXIDE 23.3 mmol/L (21-32); CHLORIDE 103 mmol/L (98-107); CREATININE 0.83 mg/dL (0.55-1.02); SODIUM 140 mmol/L (136-145); TOTAL PROTEIN 8.3 g/dL (6.4-8.2); eGFR NON BLACK RACES > 60 (>60)
[2022-02-20 06:03] VITALS: BMI 21.7
[2022-02-20] MEDS ORDERED: NS 100 ML IV 100 ML ONE (06:07)
[2022-02-20] MEDS: NS 1,000 ML IV 1,000 ML IV SCH ×2 (06:09→19:51)
[2022-02-20] MEDS: SOLU-Medrol 125 MG VIAL IVP SCH (08:45)
[2022-02-20] MEDS ORDERED: DUONEB 0.5 MG/3 MG (3 mL) NEB PRN (10:21)
--- NOTE | 2022-02-20 13:57 | DR.H&P ---
H&P History & Physical for Day of: H&P Date: 02/20/22 Chief Complaint Chief Complaint: worsening SOB Allergies Allergies Allergy/AdvReac Type Severity Reaction Status Date / Time No Known Drug Allergies Allergy Verified 08/01/19 08:13 History of Present Illness History of Present Illness: Patient is a 21y/o female with a PMH of asthma presents with worsening breathing and cough. She reports being sick for over a week. She was not treated outpatient and had been using her nebs and inhalers but it was not helping. In the ER she was found to be hypoxia requiring 4L NC. She was given nebs, racemic epi and IV steroids. CXR did not show any acute infection. She was admitted for further management. She states she feels slightly better now, she is currently on 4L. She continues to have exp wheezing. Labs/imaging reviewed Plan: continue IV steroids, nebs and IV antibiotics. Continue gentle hydration. Wean O2 as tolerated to keep sats > 92%. IS as tolerated. Patient does not take any prescribed medications. Monitor AM labs/imaging. Past Medical History Past Medical History: Asthma Past Surgical History Surgical History: No History Family History Family Medical History: Hypertension Social History Does patient currently use any type of tobacco product: No Have you used tobacco products in the last 12 months: No Type of Tobacco Use: None Does any household member use tobacco: No Alcohol Use: None Drug Use: None Medications Home Medications: No Known Drug Allergies Allergy (Verified 08/01/19 08:13) Labs Result Diagrams: 02/20/22 05:00 02/20/22 05:00 Labs: Laboratory WBC 7.8 X10^3/uL (3.6-10.0) 02/20/22 05:00 RBC 4.32 X10^6/uL (3.5-5.4) 02/20/22 05:00 Hgb 13.4 g/dL (12.0-16.0) 02/20/22 05:00 Hct 38.5 % (36.0-47.0) 02/20/22 05:00 MCV 89.3 fL (80.0-100.0) 02/20/22 05:00 MCH 31.0 pg (27.0-34.0) 02/20/22 05:00 MCHC 34.7 g/dL (33.0-35.0) 02/20/22 05:00 RDW 13.1 % (11.6-16.5) 02/20/22 05:00 Plt Count 309 X10^3/uL (150.0-450.0) 02/20/22 05:00 MPV 7.3 fL (7.4-11.0) L 02/20/22 05:00 Neut % (Auto) 86.2 % (42.0-75.0) H 02/20/22 05:00 Lymph % (Auto) 10.6 % (21.0-51.0) L 02/20/22 05:00 Glenn % (Auto) 1.9 % (0.0-13.0) 02/20/22 05:00 Eos % (Auto) 0.3 % (0.9-2.9) L 02/20/22 05:00 Baso % (Auto) 1.0 % (0.2-1.0) 02/20/22 05:00 Neut # (Auto) 6.7 x10^3/uL (2.2-4.8) H 02/20/22 05:00 Lymph # (Auto) 0.8 X10^3/uL (1.3-2.9) L 02/20/22 05:00 Glenn # (Auto) 0.1 x10^3/uL (0.3-0.8) L 02/20/22 05:00 Eos # (Auto) 0.0 x10^3/uL (0.0-0.2) 02/20/22 05:00 Baso # (Auto) 0.1 X10^3/uL (0.0-0.1) 02/20/22 05:00 Absolute Nucleated RBC 0.0 /100WBC 02/20/22 05:00 Sample Site Lrad 02/20/22 05:13 ABG pH 7.460 (7.35-7.45) H 02/20/22 05:13 ABG pCO2 31.0 mmHg (35.0-45.0) L 02/20/22 05:13 ABG pO2 46.0 mmHg (80.0-100.0) L* 02/20/22 05:13 ABG HCO3 22.0 mmol/L (22-26) 02/20/22 05:13 ABG O2 Saturation 84.0 % (90-100) L* 02/20/22 05:13 ABG Base Excess -1.1 mmol/L (-2.0-2.0) 02/20/22 05:13 Gustavo Test Pos 02/20/22 05:13 A-a Gradient 65.0 mmHg 02/20/22 05:13 FiO2 21.0 02/20/22 05:13 Blood Gas Comments Patrice abg well-mtf 02/20/22 05:13 Sodium 140 mmol/L (136-145) 02/20/22 05:00 Corrected Sodium TNP 02/20/22 05:00 Potassium 3.9 mmol/L (3.5-5.1) 02/20/22 05:00 Chloride 103 mmol/L (98-107) 02/20/22 05:00 Carbon Dioxide 23.3 mmol/L (21-32) 02/20/22 05:00 BUN 12 mg/dL (7-18) 02/20/22 05:00 Creatinine 0.83 mg/dL (0.55-1.02) 02/20/22 05:00 Est GFR (MDRD) Af Amer > 60 (>60) 02/20/22 05:00 Est GFR (MDRD) Non-Af > 60 (>60) 02/20/22 05:00 Glucose 101 mg/dL (65-99) H 02/20/22 05:00 Calcium 8.9 mg/dL (8.5-10.1) 02/20/22 05:00 Corrected Calcium TNP 02/20/22 05:00 Total Bilirubin 0.30 mg/dL (0.2-1.0) 02/20/22 05:00 AST 25 Units/L (15-37) 02/20/22 05:00 ALT 28 Units/L (12-78) 02/20/22 05:00 Alkaline Phosphatase 61 Units/L (46-116) 02/20/22 05:00 Total Protein 8.3 g/dL (6.4-8.2) H 02/20/22 05:00 Albumin 3.8 g/dL (3.4-5.0) 02/20/22 05:00 Globulin 4.5 g/dL (2.5-4.5) 02/20/22 05:00 Albumin/Globulin Ratio 0.8 Ratio (1.1-2.1) L 02/20/22 05:00 SARS CoV-2 RNA Rapid MAYI Negative (NEGATIVE) 02/20/22 01:35 Review of Systems Constitutional: No Symptoms Reported ENT: No Symptoms Reported Respiratory: Cough, Shortness of Breath, SOB with Excertion and Sputum Cardiovascular: No Symptoms Reported Gastrointestinal: No Symptoms Reported Musculoskeletal: No Symptoms Reported Skin: No Symptoms Reported Neurological: No Symptoms Reported Physical Exam Vital Signs: Temperature 98 F Pulse Rate [Right Radial] 97 Pulse Rate 105 Respiratory Rate 18 Blood Pressure [Left Arm] 113/59 Blood Pressure 111/65 O2 Sat by Pulse Oximetry 94 Oriented: Normal Eyes: Normal Nose: Normal Throat: Normal Respiratory: Wheezes Throughout, RLL Exp. Wheeze and LLL Exp. Wheeze Cardiovascular: Normal Auscultation: Bowel Sounds: Normal Tenderness: Normal Skin: Normal Musculoskeletal: Normal Psychiatric: Normal Mood Description: Calm Affect: Normal Speech Pattern: Clear and Appropriate Assessment/Plan (1) Asthma exacerbation: Status: Acute (2) Hypoxia: Status: Acute (3) Anxiety: Status: Acute Review H&P Reviewed: Yes Patient was examined?: Yes
[2022-02-20] MEDS: PULMICORT NEB TX 0.5 MG NEB SCH (20:50)
[2022-02-21] MEDS: PROVENTIL NEB TX 0.083% 2.5MG/ 3ML NEB SCH ×6 (00:19→21:46)
[2022-02-21 06:19] LABS: BLOOD UREA NITROGEN 8 mg/dL (7-18); CALCIUM 8.5 mg/dL (8.5-10.1); CARBON DIOXIDE 23.2 mmol/L (21-32); CHLORIDE 106 mmol/L (98-107); CREATININE 0.83 mg/dL (0.55-1.02); SODIUM 142 mmol/L (136-145); eGFR NON BLACK RACES > 60 (>60)
[2022-02-21 06:22] LABS: BASOPHILS # (AUTO) 0.1 X10^3/uL (0.0-0.1); BASOPHILS % (AUTO) 0.7 % (0.2-1.0); EOSINOPHILS % (AUTO) 0.3 % (0.9-2.9); HEMATOCRIT 33.5 % (36.0-47.0); LYMPHOCYTES # (AUTO) 2.5 X10^3/uL (1.3-2.9); LYMPHOCYTES % (AUTO) 21.4 % (21.0-51.0); MEAN CORPUSCULAR HEMOGLOBIN 34.8 pg (27.0-34.0); MEAN CORPUSCULAR HGB CONC 35.8 g/dL (33.0-35.0); MEAN CORPUSCULAR VOLUME 97.2 fL (80.0-100.0); MEAN PLATELET VOLUME 7.8 fL (7.4-11.0); MONOCYTES # (AUTO) 0.5 x10^3/uL (0.3-0.8); MONOCYTES % (AUTO) 4.3 % (0.0-13.0); NEUTROPHILS # (AUTO) 8.6 x10^3/uL (2.2-4.8); NEUTROPHILS % (AUTO) 73.3 % (42.0-75.0); RED BLOOD COUNT 3.44 X10^6/uL (3.5-5.4); WHITE BLOOD COUNT 11.7 X10^3/uL (3.6-10.0)
[2022-02-21] MEDS ORDERED: MAGNESIUM SULFATE 1 GRAM/100 mL PREMIX 1 G/100 ML BAG IV PRN (07:34)
[2022-02-21] MEDS: ZITHROMAX INJ 500 MG VIAL 500 MG in NS 250 ML IV 250 ML IV SCH (08:58)
[2022-02-21] MEDS: SOLU-Medrol 125 MG VIAL IVP SCH (08:58)
[2022-02-21] MEDS: K-DUR TAB 20 MEQ PO PRN (08:58)
[2022-02-21] MEDS: PULMICORT NEB TX 0.5 MG NEB SCH ×2 (10:12→21:46)
[2022-02-21] MEDS: NS 1,000 ML IV 1,000 ML IV SCH ×2 (10:16→23:03)
--- NOTE | 2022-02-21 12:31 | PCM.PROG ---
Progress Note Progress Note for Day of Date of Exam: 02/21/22 Subjective Subjective: Patient seen at bedside, no acute events overnight. She states she feels better. She has been on 4L NC. She reports chest tightness has improved. Labs reviewed Plan: RT consult for walk test, Wean O2 as tolerated to keep sats > 92%. Continue IV steroids and abx. Continue nebs and pulmicort. IS prn. Monitor AM labs. Past Medical Family Social History Allergies: Allergies No Known Drug Allergies Allergy (Verified 08/01/19 08:13) Vital Signs and I&O's Vital Signs: Temperature 98.3 F Pulse Rate [Right Radial] 92 Pulse Rate 107 Respiratory Rate 18 Blood Pressure [Left Arm] 111/58 Blood Pressure 111/65 O2 Sat by Pulse Oximetry 96 Intake and Output: Intake & Output 02/18/22 02/19/22 02/20/22 02/21/22 23:59 23:59 23:59 23:59 Intake Total 3088 / 3088 921 / 921 Balance 3088 / 3088 921 / 921 Physical Exam Oriented: Normal Eyes: Normal Nose: Normal Throat: Normal Respiratory: Generalized, Wheezes and Rhonchi Cardiovascular: Normal Auscultation: Bowel Sounds: Normal Tenderness: Normal Skin: Normal Musculoskeletal: Normal Psychiatric: Normal Mood Description: Calm Affect: Normal Speech Pattern: Clear and Appropriate Laboratory and Diagnostics Result Diagrams: 02/21/22 05:53 02/21/22 05:53 Labs: Laboratory WBC 11.7 X10^3/uL (3.6-10.0) H 02/21/22 05:53 RBC 3.44 X10^6/uL (3.5-5.4) L 02/21/22 05:53 Hgb 12.0 g/dL (12.0-16.0) 02/21/22 05:53 Hct 33.5 % (36.0-47.0) L 02/21/22 05:53 MCV 97.2 fL (80.0-100.0) 02/21/22 05:53 MCH 34.8 pg (27.0-34.0) H 02/21/22 05:53 MCHC 35.8 g/dL (33.0-35.0) H 02/21/22 05:53 RDW 13.0 % (11.6-16.5) 02/21/22 05:53 Plt Count 283 X10^3/uL (150.0-450.0) 02/21/22 05:53 MPV 7.8 fL (7.4-11.0) 02/21/22 05:53 Neut % (Auto) 73.3 % (42.0-75.0) 02/21/22 05:53 Lymph % (Auto) 21.4 % (21.0-51.0) 02/21/22 05:53 [place] % (Auto) 4.3 % (0.0-13.0) 02/21/22 05:53 Eos % (Auto) 0.3 % (0.9-2.9) L 02/21/22 05:53 Baso % (Auto) 0.7 % (0.2-1.0) 02/21/22 05:53 Neut # (Auto) 8.6 x10^3/uL (2.2-4.8) H 02/21/22 05:53 Lymph # (Auto) 2.5 X10^3/uL (1.3-2.9) 02/21/22 05:53 [place] # (Auto) 0.5 x10^3/uL (0.3-0.8) 02/21/22 05:53 Eos # (Auto) 0.0 x10^3/uL (0.0-0.2) 02/21/22 05:53 Baso # (Auto) 0.1 X10^3/uL (0.0-0.1) 02/21/22 05:53 Absolute Nucleated RBC 0.0 /100WBC 02/21/22 05:53 Sample Site Lrad 02/20/22 05:13 ABG pH 7.460 (7.35-7.45) H 02/20/22 05:13 ABG pCO2 31.0 mmHg (35.0-45.0) L 02/20/22 05:13 ABG pO2 46.0 mmHg (80.0-100.0) L* 02/20/22 05:13 ABG HCO3 22.0 mmol/L (22-26) 02/20/22 05:13 ABG O2 Saturation 84.0 % (90-100) L* 02/20/22 05:13 ABG Base Excess -1.1 mmol/L (-2.0-2.0) 02/20/22 05:13 Gustavo Test Pos 02/20/22 05:13 A-a Gradient 65.0 mmHg 02/20/22 05:13 FiO2 21.0 02/20/22 05:13 Blood Gas Comments Patrice abg well-mtf 02/20/22 05:13 Sodium 142 mmol/L (136-145) 02/21/22 05:53 Corrected Sodium TNP 02/21/22 05:53 Potassium 3.7 mmol/L (3.5-5.1) 02/21/22 05:53 Chloride 106 mmol/L (98-107) 02/21/22 05:53 Carbon Dioxide 23.2 mmol/L (21-32) 02/21/22 05:53 BUN 8 mg/dL (7-18) 02/21/22 05:53 Creatinine 0.83 mg/dL (0.55-1.02) 02/21/22 05:53 Est GFR (MDRD) Af Amer > 60 (>60) 02/21/22 05:53 Est GFR (MDRD) Non-Af > 60 (>60) 02/21/22 05:53 Glucose 91 mg/dL (65-99) 02/21/22 05:53 Calcium 8.5 mg/dL (8.5-10.1) 02/21/22 05:53 Corrected Calcium TNP 02/20/22 05:00 Magnesium 2.1 mg/dL (2.0-2.9) 02/21/22 05:53 Total Bilirubin 0.30 mg/dL (0.2-1.0) 02/20/22 05:00 AST 25 Units/L (15-37) 02/20/22 05:00 ALT 28 Units/L (12-78) 02/20/22 05:00 Alkaline Phosphatase 61 Units/L (46-116) 02/20/22 05:00 Total Protein 8.3 g/dL (6.4-8.2) H 02/20/22 05:00 Albumin 3.8 g/dL (3.4-5.0) 02/20/22 05:00 Globulin 4.5 g/dL (2.5-4.5) 02/20/22 05:00 Albumin/Globulin Ratio 0.8 Ratio (1.1-2.1) L 02/20/22 05:00 SARS CoV-2 RNA Rapid MAYI Negative (NEGATIVE) 02/20/22 01:35 Plan (1) Asthma exacerbation: Status: Acute (2) Hypoxia: Status: Acute (3) Anxiety: Status: Acute
[2022-02-22] MEDS: PROVENTIL NEB TX 0.083% 2.5MG/ 3ML NEB SCH ×2 (00:21→08:36)
[2022-02-22 06:21] LABS: BASOPHILS # (AUTO) 0.2 X10^3/uL (0.0-0.1); BASOPHILS % (AUTO) 1.5 % (0.2-1.0); EOSINOPHILS % (AUTO) 0.1 % (0.9-2.9); HEMATOCRIT 32.7 % (36.0-47.0); HEMOGLOBIN 11.4 g/dL (12.0-16.0); LYMPHOCYTES # (AUTO) 2.9 X10^3/uL (1.3-2.9); LYMPHOCYTES % (AUTO) 27.5 % (21.0-51.0); MEAN CORPUSCULAR HEMOGLOBIN 32.8 pg (27.0-34.0); MEAN CORPUSCULAR HGB CONC 34.8 g/dL (33.0-35.0); MEAN CORPUSCULAR VOLUME 94.3 fL (80.0-100.0); MEAN PLATELET VOLUME 7.8 fL (7.4-11.0); MONOCYTES # (AUTO) 0.4 x10^3/uL (0.3-0.8); MONOCYTES % (AUTO) 3.4 % (0.0-13.0); NEUTROPHILS # (AUTO) 7.2 x10^3/uL (2.2-4.8); NEUTROPHILS % (AUTO) 67.5 % (42.0-75.0); RED BLOOD COUNT 3.47 X10^6/uL (3.5-5.4); WHITE BLOOD COUNT 10.6 X10^3/uL (3.6-10.0)
[2022-02-22 06:31] LABS: BLOOD UREA NITROGEN 7 mg/dL (7-18); CALCIUM 8.1 mg/dL (8.5-10.1); CARBON DIOXIDE 23.8 mmol/L (21-32); CHLORIDE 107 mmol/L (98-107); CREATININE 0.67 mg/dL (0.55-1.02); SODIUM 140 mmol/L (136-145); eGFR NON BLACK RACES > 60 (>60)
[2022-02-22 07:24] LABS: MYELOCYTES % 1; PLATELET MORPHOLOGY COMMENT NORMAL (NORMAL)
[2022-02-22] MEDS: K-DUR TAB 20 MEQ PO PRN (08:18)
[2022-02-22] MEDS: ZITHROMAX INJ 500 MG VIAL 500 MG in NS 250 ML IV 250 ML IV SCH (08:18)
[2022-02-22] MEDS: SOLU-Medrol 125 MG VIAL IVP SCH (08:18)
[2022-02-22] MEDS: PULMICORT NEB TX 0.5 MG NEB SCH (08:36)
[2022-02-22 08:37] VITALS: BP 117/56
--- NOTE | 2022-02-22 11:20 | W.DIS.FURT ---
Summary of Discharge Admission Diagnosis Patient Problems (Updated 02/20/22 @ 04:46 by Aaliyah Early) Asthma exacerbation (Acute) J45.901 Hypoxia (Acute) R09.02 Vital Signs: Vital Signs (72 hours) 02/20/22 01:17 02/20/22 01:41 02/20/22 01:45 Temperature 98.4 F Pulse Rate 119 H 116 H 134 H Pulse Rate [Right Radial] Respiratory Rate 24 Blood Pressure 111/65 Blood Pressure [Left Arm] O2 Sat by Pulse Oximetry 91 L 96 94 L Oxygen Delivery Method Room Air Oxygen Flow Rate FIO2% 02/20/22 02:00 02/20/22 02:15 02/20/22 02:30 Temperature Pulse Rate 109 H 113 H 107 H Pulse Rate [Right Radial] Respiratory Rate Blood Pressure Blood Pressure [Left Arm] O2 Sat by Pulse Oximetry 92 L 91 L 91 L Oxygen Delivery Method Oxygen Flow Rate FIO2% 02/20/22 02:30 02/20/22 02:45 02/20/22 03:00 Temperature Pulse Rate 108 H 109 H 111 H Pulse Rate [Right Radial] Respiratory Rate Blood Pressure Blood Pressure [Left Arm] O2 Sat by Pulse Oximetry 91 L 90 L 88 L Oxygen Delivery Method Oxygen Flow Rate FIO2% 02/20/22 01:35 02/20/22 03:15 02/20/22 03:30 Temperature Pulse Rate 118 H 109 H 111 H Pulse Rate [Right Radial] Respiratory Rate Blood Pressure Blood Pressure [Left Arm] O2 Sat by Pulse Oximetry 94 L 89 L 91 L Oxygen Delivery Method Oxygen Flow Rate FIO2% 02/20/22 03:17 02/20/22 03:45 02/20/22 04:00 Temperature Pulse Rate 110 H 103 H 101 H Pulse Rate [Right Radial] Respiratory Rate Blood Pressure Blood Pressure [Left Arm] O2 Sat by Pulse Oximetry 91 L 90 L 89 L Oxygen Delivery Method Oxygen Flow Rate FIO2% 02/20/22 04:00 02/20/22 04:15 02/20/22 04:30 Temperature Pulse Rate 106 H 111 H 108 H Pulse Rate [Right Radial] Respiratory Rate Blood Pressure Blood Pressure [Left Arm] O2 Sat by Pulse Oximetry 89 L 90 L 88 L Oxygen Delivery Method Oxygen Flow Rate FIO2% 02/20/22 04:45 02/20/22 05:20 02/20/22 05:00 Temperature Pulse Rate 110 H 117 H Pulse Rate [Right Radial] Respiratory Rate 24 Blood Pressure Blood Pressure [Left Arm] O2 Sat by Pulse Oximetry 86 L 88 L Oxygen Delivery Method Oxygen Flow Rate FIO2% 02/20/22 05:15 02/20/22 05:50 02/20/22 05:20 Temperature Pulse Rate 114 H Pulse Rate [Right Radial] Respiratory Rate Blood Pressure Blood Pressure [Left Arm] O2 Sat by Pulse Oximetry 84 L Oxygen Delivery Method Nasal Cannula Nasal Cannula Oxygen Flow Rate 4 4 FIO2% 36 02/20/22 08:00 02/20/22 09:23 02/20/22 09:23 Temperature 98.3 F Pulse Rate 105 H Pulse Rate [Right Radial] Respiratory Rate 18 Blood Pressure Blood Pressure [Left Arm] 110/55 O2 Sat by Pulse Oximetry 92 L 94 L Oxygen Delivery Method Nasal Cannula Nasal Cannula Oxygen Flow Rate 2 4 FIO2% 36 02/20/22 12:00 02/20/22 07:00 02/20/22 16:00 Temperature 98 F 97.6 F Pulse Rate Pulse Rate [Right Radial] 97 H 95 H Respiratory Rate 18 18 Blood Pressure Blood Pressure [Left Arm] 113/59 105/54 O2 Sat by Pulse Oximetry 94 L 94 L Oxygen Delivery Method Nasal Cannula Nasal Cannula Nasal Cannula Oxygen Flow Rate 4 4 FIO2% 02/20/22 19:00 02/20/22 20:00 02/20/22 20:50 Temperature 97.7 F Pulse Rate Pulse Rate [Right Radial] 99 H Respiratory Rate 18 Blood Pressure Blood Pressure [Left Arm] 109/55 O2 Sat by Pulse Oximetry 97 Oxygen Delivery Method Nasal Cannula Nasal Cannula Nasal Cannula Oxygen Flow Rate 4 4 4 FIO2% 36 02/20/22 20:50 02/20/22 23:35 02/21/22 04:00 Temperature 98.2 F 97.7 F Pulse Rate 107 H Pulse Rate [Right Radial] 107 H 98 H Respiratory Rate 20 20 Blood Pressure Blood Pressure [Left Arm] 108/57 107/58 O2 Sat by Pulse Oximetry 94 L 95 93 L Oxygen Delivery Method Nasal Cannula Nasal Cannula Oxygen Flow Rate 4 4 FIO2% 02/21/22 07:00 02/21/22 07:48 02/21/22 10:12 Temperature 98.3 F Pulse Rate Pulse Rate [Right Radial] 82 Respiratory Rate 18 Blood Pressure Blood Pressure [Left Arm] 110/59 O2 Sat by Pulse Oximetry 96 Oxygen Delivery Method Nasal Cannula Nasal Cannula Room Air Oxygen Flow Rate 4 4 2 FIO2% 28 02/21/22 11:35 02/21/22 13:10 02/21/22 13:10 Temperature 98.3 F Pulse Rate Pulse Rate [Right Radial] 92 H Respiratory Rate 18 Blood Pressure Blood Pressure [Left Arm] 111/58 O2 Sat by Pulse Oximetry 96 92 L Oxygen Delivery Method Nasal Cannula Nasal Cannula Oxygen Flow Rate 4 3 FIO2% 32 02/21/22 16:00 02/21/22 19:00 02/21/22 20:00 Temperature 98.1 F 98.9 F Pulse Rate Pulse Rate [Right Radial] 98 H 101 H Respiratory Rate 18 20 Blood Pressure Blood Pressure [Left Arm] 105/55 110/57 O2 Sat by Pulse Oximetry 96 98 Oxygen Delivery Method Nasal Cannula Nasal Cannula Nasal Cannula Oxygen Flow Rate 4 3 3 FIO2% 02/21/22 21:46 02/21/22 21:46 02/22/22 00:22 Temperature Pulse Rate 86 76 Pulse Rate [Right Radial] Respiratory Rate Blood Pressure Blood Pressure [Left Arm] O2 Sat by Pulse Oximetry 96 98 Oxygen Delivery Method Nasal Cannula Oxygen Flow Rate 3 FIO2% 32 02/22/22 00:00 02/22/22 04:00 02/22/22 07:00 Temperature 99 F 99.1 F Pulse Rate Pulse Rate [Right Radial] 94 H 90 Respiratory Rate 18 18 Blood Pressure Blood Pressure [Left Arm] 106/56 118/59 O2 Sat by Pulse Oximetry 98 98 Oxygen Delivery Method Nasal Cannula Nasal Cannula Nasal Cannula Oxygen Flow Rate 3 3 3 FIO2% 02/22/22 08:00 02/22/22 08:20 02/22/22 08:56 Temperature 99.3 F Pulse Rate Pulse Rate [Right Radial] 83 Respiratory Rate 20 Blood Pressure Blood Pressure [Left Arm] 117/56 O2 Sat by Pulse Oximetry 100 Oxygen Delivery Method Nasal Cannula Room Air Room Air Oxygen Flow Rate 3 3 3 FIO2% 32 32 02/22/22 08:36 02/22/22 08:36 02/22/22 10:39 Temperature Pulse Rate 97 H Pulse Rate [Right Radial] Respiratory Rate Blood Pressure Blood Pressure [Left Arm] O2 Sat by Pulse Oximetry 94 L 97 Oxygen Delivery Method Room Air Room Air Oxygen Flow Rate 2 FIO2% 28 Labs: Laboratory Last Values WBC 10.6 X10^3/uL (3.6-10.0) H 02/22/22 05:42 RBC 3.47 X10^6/uL (3.5-5.4) L 02/22/22 05:42 Hgb 11.4 g/dL (12.0-16.0) L 02/22/22 05:42 Hct 32.7 % (36.0-47.0) L 02/22/22 05:42 MCV 94.3 fL (80.0-100.0) 02/22/22 05:42 MCH 32.8 pg (27.0-34.0) 02/22/22 05:42 MCHC 34.8 g/dL (33.0-35.0) 02/22/22 05:42 RDW 13.0 % (11.6-16.5) 02/22/22 05:42 Plt Count 313 X10^3/uL (150.0-450.0) 02/22/22 05:42 Plt Count Comment Adequate (ADEQUATE) 02/22/22 05:42 MPV 7.8 fL (7.4-11.0) 02/22/22 05:42 Neut % (Auto) 67.5 % (42.0-75.0) 02/22/22 05:42 Lymph % (Auto) 27.5 % (21.0-51.0) 02/22/22 05:42 [place] % (Auto) 3.4 % (0.0-13.0) 02/22/22 05:42 Eos % (Auto) 0.1 % (0.9-2.9) L 02/22/22 05:42 Baso % (Auto) 1.5 % (0.2-1.0) H 02/22/22 05:42 Neut # (Auto) 7.2 x10^3/uL (2.2-4.8) H 02/22/22 05:42 Lymph # (Auto) 2.9 X10^3/uL (1.3-2.9) 02/22/22 05:42 [place] # (Auto) 0.4 x10^3/uL (0.3-0.8) 02/22/22 05:42 Eos # (Auto) 0.0 x10^3/uL (0.0-0.2) 02/22/22 05:42 Baso # (Auto) 0.2 X10^3/uL (0.0-0.1) H 02/22/22 05:42 Absolute Nucleated RBC 0.0 /100WBC 02/22/22 05:42 Total Counted 100 02/22/22 05:42 Neutrophils % (Manual) 68 % (39-76) 02/22/22 05:42 Lymphocytes % (Manual) 28 % (13-43) 02/22/22 05:42 Monocytes % (Manual) 3 % (4-9) L 02/22/22 05:42 Myelocytes % 1 02/22/22 05:42 Plt Morphology Comment Normal (NORMAL) 02/22/22 05:42 RBC Morphology Normal (NORMAL) 02/22/22 05:42 Sample Site Lrad 02/20/22 05:13 ABG pH 7.460 (7.35-7.45) H 02/20/22 05:13 ABG pCO2 31.0 mmHg (35.0-45.0) L 02/20/22 05:13 ABG pO2 46.0 mmHg (80.0-100.0) L* 02/20/22 05:13 ABG HCO3 22.0 mmol/L (22-26) 02/20/22 05:13 ABG O2 Saturation 84.0 % (90-100) L* 02/20/22 05:13 ABG Base Excess -1.1 mmol/L (-2.0-2.0) 02/20/22 05:13 Gustavo Test Pos 02/20/22 05:13 A-a Gradient 65.0 mmHg 02/20/22 05:13 FiO2 21.0 02/20/22 05:13 Blood Gas Comments Patrice abg well-mtf 02/20/22 05:13 Sodium 140 mmol/L (136-145) 02/22/22 05:42 Corrected Sodium TNP 02/22/22 05:42 Potassium 3.8 mmol/L (3.5-5.1) 02/22/22 05:42 Chloride 107 mmol/L (98-107) 02/22/22 05:42 Carbon Dioxide 23.8 mmol/L (21-32) 02/22/22 05:42 BUN 7 mg/dL (7-18) 02/22/22 05:42 Creatinine 0.67 mg/dL (0.55-1.02) 02/22/22 05:42 Est GFR (MDRD) Af Amer > 60 (>60) 02/22/22 05:42 Est GFR (MDRD) Non-Af > 60 (>60) 02/22/22 05:42 Glucose 86 mg/dL (65-99) 02/22/22 05:42 Calcium 8.1 mg/dL (8.5-10.1) L 02/22/22 05:42 Corrected Calcium TNP 02/20/22 05:00 Magnesium 2.1 mg/dL (2.0-2.9) 02/21/22 05:53 Total Bilirubin 0.30 mg/dL (0.2-1.0) 02/20/22 05:00 AST 25 Units/L (15-37) 02/20/22 05:00 ALT 28 Units/L (12-78) 02/20/22 05:00 Alkaline Phosphatase 61 Units/L (46-116) 02/20/22 05:00 Total Protein 8.3 g/dL (6.4-8.2) H 02/20/22 05:00 Albumin 3.8 g/dL (3.4-5.0) 02/20/22 05:00 Globulin 4.5 g/dL (2.5-4.5) 02/20/22 05:00 Albumin/Globulin Ratio 0.8 Ratio (1.1-2.1) L 02/20/22 05:00 SARS CoV-2 RNA Rapid MAYI Negative (NEGATIVE) 02/20/22 01:35 Reason For Visit: ASTHMA EXACERBATION, HYPOXIA Discharge Diagnosis All Active Problems (Updated 02/20/22 @ 04:46 by Aaliyah Early) Asthma exacerbation (Acute) Hypoxia (Acute) Anxiety (Acute) Hypokalemia (Acute) Eye infection (Acute) Conjunctivitis of right eye (Acute) Lower back pain (Acute) Muscle spasm (Acute) Diarrhea (Acute) Strep throat (Acute) COVID-19 (Acute) Pneumonia of right upper lobe due to infectious organism (Acute) Hypoxia (Acute) Wheezing (Acute) History of COVID-19 (Acute) Asthma exacerbation (Acute) Hypoxia (Acute) Pneumonia (Acute) Plan of Treatment: Continue with present treatment and follow up plan. Pt is to keep follow up appointment as instructed and take medications as ordered. Discharge Medications Discharge Medications: No Known Drug Allergies Allergy (Verified 08/01/19 08:13) New Prescriptions montelukast 10 mg tablet (Singulair) 10 mg PO QDAY #30 tabs 02/22/22 [Rx] prednisone 20 mg tablet 40 mg PO QDAY #10 tabs 02/22/22 [Rx] Discharge Plan Discharge Plan Patient Disposition: 01 HOME, SELF-CARE Condition: Stable Health Concerns: Post Hospitalization: new medications and changes needed to prevent readmission or further decline. Pt educated and given instructions on all concerns. Care Plan Goals: Problem: Respiratory Complications Goal: Improved Uncomplicated Respiratory Status Instructions: Follow provided instructions. Follow up with primary physician as directed. Contact primary care physician or report to the closest Emergency Room if condition worsens. Plan of Treatment: Continue with present treatment and follow up plan. Pt is to keep follow up appointment as instructed and take medications as ordered. Prescriptions: New montelukast [Singulair] 10 mg Tablet 10 mg PO QDAY Qty: 30 3RF Rx Instructions: Take one tab daily prednisone 20 mg Tablet 40 mg PO QDAY Qty: 10 0RF Rx Instructions: Take 40 mg daily for 5 days. Continued ipratropium-albuterol 0.5 mg-3 mg(2.5 mg base)/3 mL solution for nebulization 3 ml inhalation Q4-6H PRNQty: 90 0RF albuterol sulfate [Ventolin HFA] 90 mcg/actuation Hfa Aerosol Inhaler 1 inh INHALATION Q4HR PRNQty: 1 0RF Rx Instructions: 6.7mcg 1puff every 4 hours as needed for shortness of breath Follow ups/Referrals Follow ups/Referrals: MIQUEL VILLANUEVA [Primary Care Provider] - 03/01/22 11:00 am Instructions Instructions: Hypoxia, How to Use a Nebulizer, Adult, Form - Asthma Action Plan, Adult, Asthma, Adult, Spep-hy-Klyd, Asthma Attack Prevention, Adult, Asthma and Physical Activity, Oximetry Stand Alone Forms: Excuse From Work or School, Precautions for COVID19, [facility], Patient Portal, Social Distancing
== END 2022-02-22 11:30 | disposition home or self-care (01) | DRG 203 ==
LOC: ER 01:16 → MED/SURG 01:16 → OBSVTOIN 04:38 → MED/SURG 05:30
PROVIDERS: ADMIT Internal Medicine; ATTEND Internal Medicine
DX: R06.02 Shortness of breath; J45.901 Unspecified asthma with (acute) exacerbation; Z20.822 Contact with and (suspected) exposure to COVID-19; F41.8 Other specified anxiety disorders; R09.02 Hypoxemia